=== PATIENT | female | born 1975 | race Caucasian/White ===

== ENCOUNTER 2017-04-03 18:10 | Emergency (ER) | payer OTHER ==
[~2017-04-03] VITALS: Ht 172.7 cm; Wt 104.3 kg
[2017-04-03 19:09] VITALS: BP 115/56
== END 2017-04-03 19:21 | disposition home or self-care (01) ==
LOC: ED 18:10
DX: S50.12XA Contusion of left forearm, initial encounter (principal); W01.198A Fall on same level from slipping, tripping and stumbling with subsequent striking against other object, initial encounter; Y93.89 Activity, other specified; Y92.89 Other specified places as the place of occurrence of the external cause; Y99.9 Unspecified external cause status

== ENCOUNTER 2017-07-02 21:02 | Emergency (ER) | payer OTHER ==
[~2017-07-02] VITALS: Ht 172.7 cm; Wt 120.2 kg
[2017-07-02 21:53] LABS: BASO % 0.4 % (0.0-1.0); EOS # 0.1 10*3/uL (0.0-0.4); EOS % 1.5 % (1.0-4.0); HEMATOCRIT 41.2 % (37.0-47.0); HEMOGLOBIN 13.3 g/dl (12.0-16.0); LYMPH % 20.5 % (27.0-41.0); MEAN CELL VOLUME 87.5 fl (81.0-99.0); MEAN CORPUSCULAR HGB 28.2 pg (27.0-31.0); MEAN CORPUSCULAR HGB CONC 32.3 g/dl (33.0-37.0); MEAN PLATELET VOLUME 11.1 fl (9.6-12.3); MONO # 0.5 10*3/uL (0.1-1.0); MONO % 5.2 % (3.0-9.0); NEUT # 6.9 10*3/uL (2.3-7.9); NEUT % 72.1 % (47.0-73.0); PLATELET COUNT AUTOMATED 184 10*3/uL (130-400); RED BLOOD COUNT 4.71 10*6/uL (4.10-5.10); RED CELL DISTRI WIDTH 13.9 % (0-14.5); WHITE BLOOD COUNT 9.5 10*3/uL (4.8-10.8)
[2017-07-02 22:09] LABS: ALBUMIN 3.1 gm/dl (3.1-4.5); ALKALINE PHOSPHATASE 104 U/L (45-117); B-hCG (QUALITATIVE) NEGATIVE (NEGATIVE); BUN 8 mg/dl (7-24); CHLORIDE 102 mmol/L (98-107); CREATININE 0.86 mg/dL (0.55-1.02); LIPASE 95 U/L (73-393); POTASSIUM 3.8 mmol/L (3.5-5.1); SGOT/AST 11 IU/L (3-35); SGPT/ALT 18 U/L (12-78); SODIUM 136 mmol/L (136-145); TOTAL PROTEIN 7.1 gm/dL (6.4-8.2)
[2017-07-02 22:11] LABS: TROPONIN I < 0.015 ng/ml (<0.045)
[2017-07-02 22:50] LABS: BILIRUBIN NEGATIVE (NEGATIVE); BLOOD NEGATIVE (NEGATIVE); CLARITY SL CLOUDY (CLEAR); COLOR YELLOW (YELLOW); GLUCOSE 2+ (NEGATIVE); KETONE NEGATIVE (NEGATIVE); LEUKO ESTERASE NEGATIVE (NEGATIVE); NITRITE NEGATIVE (NEGATIVE); PH 5.5 (5.0-9.0); SPECIFIC GRAVITY 1.025 (1.005-1.030); UROBILINOGEN 0.2 E.U./dl (0.2-1.0)
[2017-07-02 22:56] LABS: BACTERIA 2+
[2017-07-03 00:07] VITALS: BP 115/60
== END 2017-07-03 00:21 | disposition home or self-care (01) ==
LOC: ED 21:02
PROVIDERS: Emergency Medicine Emergency Medical Services
DX: L84 Corns and callosities (principal); R10.13 Epigastric pain; E11.9 Type 2 diabetes mellitus without complications; F17.200 Nicotine dependence, unspecified, uncomplicated; K21.9 Gastro-esophageal reflux disease without esophagitis

== ENCOUNTER → 2017-07-03 | Outpatient (CLI) | payer OTHER ==
[~2017-07-03] MED LIST: ANAPROX DS550 MG PO; ZOFRAN ODT4 MG SL
== END | disposition home or self-care (01) ==
LOC: US 08:30
DX: R93.8 Abnormal findings on diagnostic imaging of other specified body structures (principal); N83.201 Unspecified ovarian cyst, right side

== ENCOUNTER 2017-07-05 14:16 | Emergency (ER) | payer OTHER ==
[~2017-07-05] VITALS: Ht 172.7 cm; Wt 120.2 kg
[2017-07-05 14:17] VITALS: BP 125/63
[2017-07-05] MEDS ORDERED: ANAPROX DS550 MG PO (16:37)
[2017-07-05] MEDS ORDERED: ZOFRAN ODT4 MG SL (16:37)
== END 2017-07-05 16:51 | disposition home or self-care (01) ==
LOC: ED 14:16
DX: S09.90XA Unspecified injury of head, initial encounter (principal); M79.672 Pain in left foot; R10.13 Epigastric pain; R11.0 Nausea; F17.200 Nicotine dependence, unspecified, uncomplicated; W10.9XXA Fall (on) (from) unspecified stairs and steps, initial encounter; Y93.89 Activity, other specified; Y92.89 Other specified places as the place of occurrence of the external cause; Y99.8 Other external cause status

== ENCOUNTER 2017-07-11 19:04 | Emergency (ER) | payer OTHER ==
[~2017-07-11] VITALS: Ht 172.7 cm; Wt 106.6 kg
[2017-07-11 20:57] LABS: BASO % 0.3 % (0.0-1.0); EOS # 0.1 10*3/uL (0.0-0.4); HEMATOCRIT 41.5 % (37.0-47.0); HEMOGLOBIN 13.5 g/dl (12.0-16.0); LYMPH # 1.5 10*3/uL (1.3-4.4); LYMPH % 17.1 % (27.0-41.0); MEAN CELL VOLUME 88.1 fl (81.0-99.0); MEAN CORPUSCULAR HGB 28.7 pg (27.0-31.0); MEAN CORPUSCULAR HGB CONC 32.5 g/dl (33.0-37.0); MEAN PLATELET VOLUME 11.5 fl (9.6-12.3); MONO # 0.6 10*3/uL (0.1-1.0); MONO % 7.3 % (3.0-9.0); NEUT # 6.4 10*3/uL (2.3-7.9); NEUT % 73.8 % (47.0-73.0); PLATELET COUNT AUTOMATED 158 10*3/uL (130-400); RED BLOOD COUNT 4.71 10*6/uL (4.10-5.10); WHITE BLOOD COUNT 8.7 10*3/uL (4.8-10.8)
[2017-07-11 21:15] LABS: ALBUMIN 3.2 gm/dl (3.1-4.5); ALKALINE PHOSPHATASE 107 U/L (45-117); BUN 7 mg/dl (7-24); CHLORIDE 100 mmol/L (98-107); CREATININE 0.74 mg/dL (0.55-1.02); POTASSIUM 3.8 mmol/L (3.5-5.1); SGOT/AST 11 IU/L (3-35); SGPT/ALT 17 U/L (12-78); SODIUM 137 mmol/L (136-145); TOTAL PROTEIN 7.3 gm/dL (6.4-8.2)
[2017-07-11 22:06] LABS: BILIRUBIN NEGATIVE (NEGATIVE); BLOOD NEGATIVE (NEGATIVE); CLARITY SL CLOUDY (CLEAR); COLOR YELLOW (YELLOW); GLUCOSE 3+ (NEGATIVE); KETONE TRACE (NEGATIVE); LEUKO ESTERASE NEGATIVE (NEGATIVE); NITRITE NEGATIVE (NEGATIVE); SPECIFIC GRAVITY 1.025 (1.005-1.030)
[2017-07-11 22:11] LABS: BACTERIA 1+
[2017-07-11 22:12] LABS: EPITHELIAL CELLS 21-30
[2017-07-11 22:40] VITALS: BP 135/74
[2017-07-11] MEDS ORDERED: PROTONIX40 MG PO (23:24)
== END 2017-07-11 23:38 | disposition home or self-care (01) ==
LOC: ED 19:04
PROVIDERS: Nurse Practitioner
DX: K57.30 Diverticulosis of large intestine without perforation or abscess without bleeding (principal); N20.0 Calculus of kidney; K20.8 Other esophagitis; R10.13 Epigastric pain; E11.9 Type 2 diabetes mellitus without complications; E78.00 Pure hypercholesterolemia, unspecified; D68.9 Coagulation defect, unspecified; F17.200 Nicotine dependence, unspecified, uncomplicated; Z79.899 Other long term (current) drug therapy; Z98.51 Tubal ligation status

== ENCOUNTER → 2017-07-13 | Outpatient (CLI) | payer OTHER ==
[~2017-07-13] MED LIST changes: +CLARITIN10 MG PO; +DELTASONE20 M1 PO; +PEPCID20 MG PO; +PROTONIX40 MG PO
== END | disposition home or self-care (01) ==
LOC: MAMMO 07:20
DX: Z12.31 Encounter for screening mammogram for malignant neoplasm of breast (principal)

== ENCOUNTER 2017-07-16 08:09 | Emergency (ER) | payer OTHER ==
[~2017-07-16] VITALS: Wt 90.7 kg
[~2017-07-16 08:09] MED LIST changes: -CLARITIN10 MG PO; -DELTASONE20 M1 PO; -PEPCID20 MG PO
[2017-07-16 08:12] VITALS: BP 139/63
[2017-07-16] MEDS ORDERED: CLARITIN10 MG PO (08:14)
[2017-07-16] MEDS ORDERED: PEPCID20 MG PO (08:14)
[2017-07-16] MEDS ORDERED: DELTASONE20 M1 PO (08:14)
== END 2017-07-16 08:26 | disposition home or self-care (01) ==
LOC: ED 08:09
DX: L50.9 Urticaria, unspecified (principal); E11.9 Type 2 diabetes mellitus without complications; I10 Essential (primary) hypertension

== ENCOUNTER 2017-07-25 07:23 | Emergency (ER) | payer OTHER ==
[~2017-07-25] VITALS: Ht 172.7 cm; Wt 120.2 kg
[~2017-07-25 07:23] MED LIST changes: +CLARITIN10 MG PO; +DELTASONE20 M1 PO; +PEPCID20 MG PO
[2017-07-25 07:47] LABS: BASO % 0.4 % (0.0-1.0); EOS # 0.1 10*3/uL (0.0-0.4); EOS % 1.3 % (1.0-4.0); HEMATOCRIT 42.8 % (37.0-47.0); HEMOGLOBIN 13.7 g/dl (12.0-16.0); LYMPH # 1.5 10*3/uL (1.3-4.4); LYMPH % 13.9 % (27.0-41.0); MEAN CELL VOLUME 87.7 fl (81.0-99.0); MEAN CORPUSCULAR HGB 28.1 pg (27.0-31.0); MEAN PLATELET VOLUME 10.5 fl (9.6-12.3); MONO # 0.8 10*3/uL (0.1-1.0); MONO % 7.5 % (3.0-9.0); NEUT # 8.1 10*3/uL (2.3-7.9); NEUT % 76.5 % (47.0-73.0); PLATELET COUNT AUTOMATED 198 10*3/uL (130-400); RED BLOOD COUNT 4.88 10*6/uL (4.10-5.10); RED CELL DISTRI WIDTH 14.1 % (0-14.5); WHITE BLOOD COUNT 10.6 10*3/uL (4.8-10.8)
[2017-07-25 08:03] LABS: ALBUMIN 3.1 gm/dl (3.1-4.5); ALKALINE PHOSPHATASE 125 U/L (45-117); BUN 9 mg/dl (7-24); CHLORIDE 102 mmol/L (98-107); CREATININE 0.74 mg/dL (0.55-1.02); LIPASE 90 U/L (73-393); POTASSIUM 3.7 mmol/L (3.5-5.1); SGOT/AST 9 IU/L (3-35); SGPT/ALT 15 U/L (12-78); SODIUM 135 mmol/L (136-145); TOTAL PROTEIN 7.5 gm/dL (6.4-8.2)
[2017-07-25 08:08] LABS: BILIRUBIN NEGATIVE (NEGATIVE); BLOOD NEGATIVE (NEGATIVE); CLARITY CLEAR (CLEAR); COLOR YELLOW (YELLOW); GLUCOSE 3+ (NEGATIVE); KETONE NEGATIVE (NEGATIVE); LEUKO ESTERASE NEGATIVE (NEGATIVE); NITRITE NEGATIVE (NEGATIVE); PH 5.5 (5.0-9.0); SPECIFIC GRAVITY >= 1.030 (1.005-1.030); UROBILINOGEN 0.2 E.U./dl (0.2-1.0)
[2017-07-25 08:20] LABS: BACTERIA 1+; CALCIUM OXALATE CRYSTALS 1+
[2017-07-25 09:40] VITALS: BP 113/61
[2017-07-25] MEDS ORDERED: CARAFATE1 GM/10 ML PO (10:12)
[2017-07-25] MEDS ORDERED: Zofran4 MG SL (10:12)
== END 2017-07-25 11:47 | disposition home or self-care (01) ==
LOC: ED 07:23
PROVIDERS: Student in an Organized Health Care Education/Training Program
DX: R11.2 Nausea with vomiting, unspecified (principal); R10.9 Unspecified abdominal pain; E11.9 Type 2 diabetes mellitus without complications; Z79.899 Other long term (current) drug therapy; Z87.442 Personal history of urinary calculi; Z90.49 Acquired absence of other specified parts of digestive tract

== ENCOUNTER 2017-07-29 22:30 | Inpatient (IN) | payer OTHER ==
[~2017-07-29] VITALS: Ht 172.7 cm
[~2017-07-29 22:30] MED LIST changes: +CARAFATE1 GM/10 ML PO; +Zofran4 MG SL
[2017-07-29 22:33] VITALS: BP 137/45
[2017-07-29 22:55] LABS: BASO # 0.1 10*3/uL (0.0-0.1); BASO % 0.5 % (0.0-1.0); EOS # 0.1 10*3/uL (0.0-0.4); EOS % 0.7 % (1.0-4.0); HEMATOCRIT 40.7 % (37.0-47.0); HEMOGLOBIN 12.8 g/dl (12.0-16.0); LYMPH # 1.4 10*3/uL (1.3-4.4); LYMPH % 12.6 % (27.0-41.0); MEAN CELL VOLUME 89.1 fl (81.0-99.0); MEAN CORPUSCULAR HGB CONC 31.4 g/dl (33.0-37.0); MEAN PLATELET VOLUME 11.1 fl (9.6-12.3); MONO # 0.7 10*3/uL (0.1-1.0); MONO % 6.4 % (3.0-9.0); NEUT # 8.7 10*3/uL (2.3-7.9); NEUT % 79.4 % (47.0-73.0); PLATELET COUNT AUTOMATED 242 10*3/uL (130-400); RED BLOOD COUNT 4.57 10*6/uL (4.10-5.10); RED CELL DISTRI WIDTH 14.4 % (0-14.5)
[2017-07-29] MEDS ORDERED: ELIQUIS5 M1 PO (22:57)
[2017-07-29] MEDS ORDERED: NEURONTIN300 MG PO (22:58)
[2017-07-29] MEDS ORDERED: METFORMIN1000 MG PO (22:58)
[2017-07-29] MEDS ORDERED: OMEPRAZOLE40 MG PO (22:58)
[2017-07-29] MEDS ORDERED: ASPIRIN CHEWABL81 MG PO (22:59)
[2017-07-29] MEDS ORDERED: AMARYL4 MG PO (22:59)
[2017-07-29] MEDS ORDERED: LISINOPRIL2.5 MG PO (23:00)
[2017-07-29] MEDS ORDERED: ZOCOR5 MG PO (23:00)
[2017-07-29] MEDS ORDERED: NOVOLOG 70/30 M10 ML SC (23:01)
[2017-07-29 23:06] LABS: ACT PARTIAL THROMBO TIME 21.3 SECONDS (20.8-31.5)
[2017-07-29 23:08] LABS: LIPASE 107 U/L (73-393)
[2017-07-29 23:16] LABS: ALBUMIN 3.1 gm/dl (3.1-4.5); ALKALINE PHOSPHATASE 111 U/L (45-117); BUN 8 mg/dl (7-24); CHLORIDE 103 mmol/L (98-107); CREATININE 0.76 mg/dL (0.55-1.02); POTASSIUM 4.4 mmol/L (3.5-5.1); SGOT/AST 12 IU/L (3-35); SGPT/ALT 17 U/L (12-78); SODIUM 137 mmol/L (136-145); TOTAL PROTEIN 6.9 gm/dL (6.4-8.2)
[2017-07-29 23:17] LABS: TROPONIN I < 0.015 ng/ml (<0.045)
[2017-07-29 23:22] LABS: BILIRUBIN NEGATIVE (NEGATIVE); BLOOD NEGATIVE (NEGATIVE); CLARITY SL CLOUDY (CLEAR); COLOR YELLOW (YELLOW); GLUCOSE 2+ (NEGATIVE); KETONE 1+ (NEGATIVE); LEUKO ESTERASE NEGATIVE (NEGATIVE); NITRITE NEGATIVE (NEGATIVE); SPECIFIC GRAVITY >= 1.030 (1.005-1.030); UROBILINOGEN 0.2 E.U./dl (0.2-1.0)
[2017-07-29 23:29] LABS: BACTERIA 2+; CALCIUM OXALATE CRYSTALS 1+; EPITHELIAL CELLS 20-25
[2017-07-29 23:30] VITALS: BP 116/69
[2017-07-30] LABS: URINE AMPHETAMINES < 1000 (1000ng/ml); URINE BARBITURATES > 200 (200ng/ml); URINE BENZODIAZEPINES < 200 (200ng/ml); URINE CANNABINOIDS (THC) < 50 (50ng/ml); URINE COCAINE < 300 (300ng/ml); URINE METHADONE < 300 (300ng/ml); URINE OPIATES < 300 (300ng/ml); URINE PHENCYCLIDINE < 25 (25ng/ml)
[2017-07-30 00:41] VITALS: BP 119/96
[2017-07-30 00:50] VITALS: BP 130/61
[2017-07-30 05:05] LABS: ALBUMIN 2.7 gm/dl (3.1-4.5); ALKALINE PHOSPHATASE 111 U/L (45-117); BUN 6 mg/dl (7-24); CHLORIDE 104 mmol/L (98-107); CHOLESTEROL 219 mg/dL (<200); CREATININE 0.65 mg/dL (0.55-1.02); FREE T4 0.97 ng/dl (0.76-1.46); HDL CHOLESTEROL 17 mg/dl (40-60); LDL CHOLESTEROL 158 mg/dL (9-159); PHOSPHOROUS 2.4 mg/dL (2.5-4.9); POTASSIUM 3.7 mmol/L (3.5-5.1); SGOT/AST 13 IU/L (3-35); SGPT/ALT 16 U/L (12-78); SODIUM 140 mmol/L (136-145); TOTAL PROTEIN 6.8 gm/dL (6.4-8.2); TRIGLYCERIDES 221 mg/dl (<150); VLDL CHOLESTEROL 44 mg/dL (6-40)
[2017-07-30 05:10] LABS: ACT PARTIAL THROMBO TIME 21.9 SECONDS (20.8-31.5)
[2017-07-30 06:13] LABS: BASO % 0.3 % (0.0-1.0); EOS # 0.1 10*3/uL (0.0-0.4); EOS % 1.1 % (1.0-4.0); HEMATOCRIT 40.1 % (37.0-47.0); HEMOGLOBIN 12.6 g/dl (12.0-16.0); LYMPH # 1.8 10*3/uL (1.3-4.4); LYMPH % 20.2 % (27.0-41.0); MEAN CELL VOLUME 89.1 fl (81.0-99.0); MEAN CORPUSCULAR HGB CONC 31.4 g/dl (33.0-37.0); MEAN PLATELET VOLUME 11.5 fl (9.6-12.3); MONO # 0.7 10*3/uL (0.1-1.0); MONO % 7.3 % (3.0-9.0); NEUT # 6.3 10*3/uL (2.3-7.9); NEUT % 70.8 % (47.0-73.0); PLATELET COUNT AUTOMATED 242 10*3/uL (130-400); RED CELL DISTRI WIDTH 14.4 % (0-14.5)
[2017-07-30 06:55] LABS: VITAMIN D, 25-HYDROXY 20.3 ng/mL (30-100)
[2017-07-30 08:00] VITALS: BP 121/57
[2017-07-30 12:00] VITALS: BP 140/71
[2017-07-30 16:00] VITALS: BP 130/73
[2017-07-30 20:00] VITALS: BP 108/48
[2017-07-31] VITALS: BP 129/68
[2017-07-31 06:35] LABS: BUN 5 mg/dl (7-24); CHLORIDE 105 mmol/L (98-107); CREATININE 0.72 mg/dL (0.55-1.02); PHOSPHOROUS 2.7 mg/dL (2.5-4.9); SODIUM 142 mmol/L (136-145)
[2017-07-31 06:40] LABS: BASO % 0.3 % (0.0-1.0); EOS # 0.2 10*3/uL (0.0-0.4); EOS % 2.2 % (1.0-4.0); HEMATOCRIT 39.3 % (37.0-47.0); HEMOGLOBIN 12.2 g/dl (12.0-16.0); LYMPH # 1.3 10*3/uL (1.3-4.4); LYMPH % 15.5 % (27.0-41.0); MEAN CELL VOLUME 90.6 fl (81.0-99.0); MEAN CORPUSCULAR HGB 28.1 pg (27.0-31.0); MEAN PLATELET VOLUME 11.3 fl (9.6-12.3); MONO # 0.8 10*3/uL (0.1-1.0); MONO % 9.7 % (3.0-9.0); NEUT # 6.2 10*3/uL (2.3-7.9); NEUT % 72.1 % (47.0-73.0); PLATELET COUNT AUTOMATED 251 10*3/uL (130-400); RED BLOOD COUNT 4.34 10*6/uL (4.10-5.10); RED CELL DISTRI WIDTH 14.2 % (0-14.5); WHITE BLOOD COUNT 8.6 10*3/uL (4.8-10.8)
[2017-07-31 08:00] VITALS: BP 105/39
[2017-07-31 16:00] VITALS: BP 114/65
[2017-07-31 20:00] VITALS: BP 132/72
[2017-08-01] VITALS (9 sets, daily range): BP systolic 90–118; BP diastolic 48–86
[2017-08-01 06:33] LABS: BASO % 0.3 % (0.0-1.0); EOS # 0.2 10*3/uL (0.0-0.4); EOS % 2.2 % (1.0-4.0); HEMATOCRIT 39.1 % (37.0-47.0); HEMOGLOBIN 11.9 g/dl (12.0-16.0); LYMPH # 1.9 10*3/uL (1.3-4.4); LYMPH % 19.7 % (27.0-41.0); MEAN CELL VOLUME 91.6 fl (81.0-99.0); MEAN CORPUSCULAR HGB 27.9 pg (27.0-31.0); MEAN CORPUSCULAR HGB CONC 30.4 g/dl (33.0-37.0); MONO # 0.5 10*3/uL (0.1-1.0); MONO % 5.3 % (3.0-9.0); NEUT % 72.1 % (47.0-73.0); PLATELET COUNT AUTOMATED 254 10*3/uL (130-400); RED BLOOD COUNT 4.27 10*6/uL (4.10-5.10); RED CELL DISTRI WIDTH 14.1 % (0-14.5); WHITE BLOOD COUNT 9.7 10*3/uL (4.8-10.8)
[2017-08-01 07:07] LABS: BUN 6 mg/dl (7-24); CHLORIDE 102 mmol/L (98-107); CREATININE 0.68 mg/dL (0.55-1.02); SODIUM 139 mmol/L (136-145)
[2017-08-02 00:22] VITALS: BP 139/70
[2017-08-03 15:08] LABS: ANTICARDIOLIPIN AB, IGG, QN <9 GPL U/mL (0-14); ANTICARDIOLIPIN AB, IGM, QN 14 MPL U/mL (0-12); CARDIOLIPIN AB IGA 161836 <9 APL U/mL (0-11)
[2017-08-04 01:04] LABS: PTT-LA 46.1 sec (0.0-51.9)
[2017-08-04 02:05] LABS: ANTI-THROMBIN III ACTIVITY 108 % (75-135); PROTEIN S, FREE 93 % (57-157); PROTEIN S, TOTAL 82 % (60-150)
[2017-08-04 07:05] LABS: LUPUS REFLEX INTERPRETATION Comment: (.)
== END 2017-08-02 08:20 | disposition other institution (70) | DRG 303 ==
LOC: ED 22:30 → 5E 07-30 00:13 → EDHOLD 07-30 00:13 → 5E 07-30 00:22
PROVIDERS: Emergency Medicine; Family Medicine; Internal Medicine
PROC: 4A02XM4 Measurement of Cardiac Total Activity, External Approach (ICD-10-PCS; 2017-07-31)
PROC: 3E073KZ Introduction of Other Diagnostic Substance into Coronary Artery, Percutaneous Approach (ICD-10-PCS; 2017-07-31)
PROC: B245ZZ4 Ultrasonography of Left Heart, Transesophageal (ICD-10-PCS; principal; 2017-08-01)
DX: I25.10 Atherosclerotic heart disease of native coronary artery without angina pectoris (principal); I74.9 Embolism and thrombosis of unspecified artery; I82.90 Acute embolism and thrombosis of unspecified vein; D73.5 Infarction of spleen; E83.39 Other disorders of phosphorus metabolism; D57.1 Sickle-cell disease without crisis; E11.65 Type 2 diabetes mellitus with hyperglycemia; E83.41 Hypermagnesemia; K29.70 Gastritis, unspecified, without bleeding; N20.0 Calculus of kidney; F17.210 Nicotine dependence, cigarettes, uncomplicated; K57.90 Diverticulosis of intestine, part unspecified, without perforation or abscess without bleeding; D72.825 Bandemia; E78.5 Hyperlipidemia, unspecified; E53.8 Deficiency of other specified B group vitamins; Z79.4 Long term (current) use of insulin; Z71.6 Tobacco abuse counseling; Z90.49 Acquired absence of other specified parts of digestive tract; Z98.51 Tubal ligation status; Z86.73 Personal history of transient ischemic attack (TIA), and cerebral infarction without residual deficits; Z79.82 Long term (current) use of aspirin; Z79.84 Long term (current) use of oral hypoglycemic drugs; Z79.899 Other long term (current) drug therapy

== ENCOUNTER → 2017-08-16 | Outpatient (CLI) | payer OTHER ==
[~2017-08-16] MED LIST changes: +AMARYL4 MG PO; +ASPIRIN CHEWABL81 MG PO; +ELIQUIS5 M1 PO; +LISINOPRIL2.5 MG PO; +METFORMIN1000 MG PO; +NEURONTIN300 MG PO; +NOVOLOG 70/30 M10 ML SC; +OMEPRAZOLE40 MG PO; +ZOCOR5 MG PO
[2017-08-16 12:13] LABS: BASO % 0.3 % (0.0-1.0); EOS # 0.3 10*3/uL (0.0-0.4); EOS % 2.2 % (1.0-4.0); HEMATOCRIT 41.5 % (37.0-47.0); HEMOGLOBIN 13.1 g/dl (12.0-16.0); LYMPH # 1.6 10*3/uL (1.3-4.4); LYMPH % 13.1 % (27.0-41.0); MEAN CELL VOLUME 89.1 fl (81.0-99.0); MEAN CORPUSCULAR HGB 28.1 pg (27.0-31.0); MEAN CORPUSCULAR HGB CONC 31.6 g/dl (33.0-37.0); MEAN PLATELET VOLUME 11.4 fl (9.6-12.3); MONO # 0.7 10*3/uL (0.1-1.0); MONO % 5.6 % (3.0-9.0); NEUT # 9.4 10*3/uL (2.3-7.9); NEUT % 78.4 % (47.0-73.0); PLATELET COUNT AUTOMATED 363 10*3/uL (130-400); RED BLOOD COUNT 4.66 10*6/uL (4.10-5.10); RED CELL DISTRI WIDTH 14.5 % (0-14.5); WHITE BLOOD COUNT 11.9 10*3/uL (4.8-10.8)
[2017-08-16 12:46] LABS: ALBUMIN 3.1 gm/dl (3.1-4.5); ALKALINE PHOSPHATASE 146 U/L (45-117); BUN 7 mg/dl (7-24); CHLORIDE 102 mmol/L (98-107); CREATININE 0.77 mg/dL (0.55-1.02); POTASSIUM 3.7 mmol/L (3.5-5.1); SGOT/AST 9 IU/L (3-35); SGPT/ALT 13 U/L (12-78); SODIUM 138 mmol/L (136-145); TOTAL PROTEIN 7.2 gm/dL (6.4-8.2)
[2017-08-18 22:06] LABS: PROTEIN C, ACTIVITY 111 % (.); PROTEIN S ACTIVITY 134 % (.)
== END | disposition home or self-care (01) ==
LOC: LAB 11:33
PROVIDERS: Registered Nurse Flight
DX: I10 Essential (primary) hypertension (principal); E11.65 Type 2 diabetes mellitus with hyperglycemia; Z86.718 Personal history of other venous thrombosis and embolism

== ENCOUNTER → 2017-09-22 | Outpatient (CLI) | payer OTHER | END | disposition home or self-care (01) | LOC: RAD 12:06 | DX: M25.551 Pain in right hip (principal); R20.0 Anesthesia of skin; R20.2 Paresthesia of skin ==

== ENCOUNTER → 2018-01-10 | Outpatient (CLI) | payer OTHER ==
[2018-01-10 11:12] LABS: HEMATOCRIT 40.6 % (37.0-47.0); HEMOGLOBIN 12.8 g/dl (12.0-16.0); MEAN CELL VOLUME 88.6 fl (81.0-99.0); MEAN CORPUSCULAR HGB 27.9 pg (27.0-31.0); MEAN CORPUSCULAR HGB CONC 31.5 g/dl (33.0-37.0); MEAN PLATELET VOLUME 10.9 fl (9.6-12.3); RED BLOOD COUNT 4.58 10*6/uL (4.10-5.10); RED CELL DISTRI WIDTH 15.5 % (0-14.5); WHITE BLOOD COUNT 9.9 10*3/uL (4.8-10.8)
[2018-01-10 11:40] LABS: ALBUMIN 2.9 gm/dl (3.1-4.5); ALKALINE PHOSPHATASE 112 U/L (45-117); BUN 10 mg/dl (7-24); CHLORIDE 102 mmol/L (98-107); CHOLESTEROL 195 mg/dL (<200); CREATININE 0.95 mg/dL (0.55-1.02); HDL CHOLESTEROL 18 mg/dl (40-60); LDL CHOLESTEROL 127 mg/dL (9-159); POTASSIUM 3.9 mmol/L (3.5-5.1); SGOT/AST 6 IU/L (3-35); SGPT/ALT 12 U/L (12-78); SODIUM 135 mmol/L (136-145); TRIGLYCERIDES 251 mg/dl (<150); VLDL CHOLESTEROL 50 mg/dL (6-40)
== END | disposition home or self-care (01) ==
LOC: LAB 10:46
PROVIDERS: Registered Nurse Flight
DX: M25.561 Pain in right knee (principal); I10 Essential (primary) hypertension; E11.65 Type 2 diabetes mellitus with hyperglycemia; E78.00 Pure hypercholesterolemia, unspecified

== ENCOUNTER 2018-05-19 15:31 | Emergency (ER) | payer OTHER ==
[~2018-05-19] VITALS: Ht 172.7 cm; Wt 106.6 kg
[2018-05-19 15:34] VITALS: BP 118/67
[2018-05-19] MEDS ORDERED: MEDROL DOSEPAK4 MG PO (16:48)
== END 2018-05-19 17:05 | disposition home or self-care (01) ==
LOC: ED 15:31
DX: M79.671 Pain in right foot (principal); E11.9 Type 2 diabetes mellitus without complications; F17.200 Nicotine dependence, unspecified, uncomplicated; Z79.899 Other long term (current) drug therapy; Z79.84 Long term (current) use of oral hypoglycemic drugs; Z79.82 Long term (current) use of aspirin; Z79.4 Long term (current) use of insulin

== ENCOUNTER 2018-06-20 20:02 | Emergency (ER) | payer OTHER ==
[~2018-06-20] VITALS: Wt 106.6 kg
[~2018-06-20 20:02] MED LIST changes: +MEDROL DOSEPAK4 MG PO
[2018-06-20 20:05] VITALS: BP 131/98
[2018-06-20 20:32] LABS: BASO % 0.2 % (0.0-1.0); EOS # 0.1 10*3/uL (0.0-0.4); HEMATOCRIT 41.4 % (37.0-47.0); HEMOGLOBIN 13.4 g/dl (12.0-16.0); LYMPH # 2.3 10*3/uL (1.3-4.4); LYMPH % 20.1 % (27.0-41.0); MEAN CELL VOLUME 88.3 fl (81.0-99.0); MEAN CORPUSCULAR HGB 28.6 pg (27.0-31.0); MEAN CORPUSCULAR HGB CONC 32.4 g/dl (33.0-37.0); MEAN PLATELET VOLUME 10.5 fl (9.6-12.3); MONO # 0.8 10*3/uL (0.1-1.0); MONO % 6.6 % (3.0-9.0); NEUT # 8.3 10*3/uL (2.3-7.9); NEUT % 71.8 % (47.0-73.0); PLATELET COUNT AUTOMATED 181 10*3/uL (130-400); RED BLOOD COUNT 4.69 10*6/uL (4.10-5.10); RED CELL DISTRI WIDTH 15.2 % (0-14.5); WHITE BLOOD COUNT 11.6 10*3/uL (4.8-10.8)
[2018-06-20 20:47] LABS: ALKALINE PHOSPHATASE 105 U/L (45-117); BUN 11 mg/dl (7-24); CHLORIDE 106 mmol/L (98-107); CREATININE 0.73 mg/dL (0.55-1.02); SGOT/AST 6 IU/L (3-35); SGPT/ALT 17 U/L (12-78); SODIUM 137 mmol/L (136-145); TOTAL PROTEIN 7.6 gm/dL (6.4-8.2); URIC ACID 3.6 mg/dL (2.6-6.0)
== END 2018-06-20 22:53 | disposition home or self-care (01) ==
LOC: ED 20:02
PROVIDERS: Nurse Practitioner Family
DX: M79.605 Pain in left leg (principal); R60.0 Localized edema; E11.9 Type 2 diabetes mellitus without complications; E78.5 Hyperlipidemia, unspecified; J45.909 Unspecified asthma, uncomplicated; F17.200 Nicotine dependence, unspecified, uncomplicated; Z86.73 Personal history of transient ischemic attack (TIA), and cerebral infarction without residual deficits; Z79.899 Other long term (current) drug therapy; Z79.82 Long term (current) use of aspirin; Z79.4 Long term (current) use of insulin; Z79.84 Long term (current) use of oral hypoglycemic drugs; Z90.49 Acquired absence of other specified parts of digestive tract

== ENCOUNTER 2018-09-29 19:21 | Emergency (ER) | payer OTHER ==
[~2018-09-29] VITALS: Wt 95.7 kg
[2018-09-29 19:23] VITALS: BP 137/75
[2018-09-29 20:20] LABS: BASO % 0.2 % (0.0-1.0); EOS # 0.1 10*3/uL (0.0-0.4); EOS % 1.1 % (1.0-4.0); HEMATOCRIT 36.3 % (37.0-47.0); HEMOGLOBIN 11.2 g/dl (12.0-16.0); LYMPH # 1.4 10*3/uL (1.3-4.4); LYMPH % 15.9 % (27.0-41.0); MEAN CELL VOLUME 89.9 fl (81.0-99.0); MEAN CORPUSCULAR HGB 27.7 pg (27.0-31.0); MEAN CORPUSCULAR HGB CONC 30.9 g/dl (33.0-37.0); MEAN PLATELET VOLUME 10.3 fl (9.6-12.3); MONO # 0.6 10*3/uL (0.1-1.0); MONO % 6.8 % (3.0-9.0); NEUT # 6.7 10*3/uL (2.3-7.9); NEUT % 75.7 % (47.0-73.0); PLATELET COUNT AUTOMATED 309 10*3/uL (130-400); RED BLOOD COUNT 4.04 10*6/uL (4.10-5.10); RED CELL DISTRI WIDTH 17.4 % (0-14.5); WHITE BLOOD COUNT 8.9 10*3/uL (4.8-10.8)
[2018-09-29 20:38] LABS: ALBUMIN 2.9 gm/dl (3.1-4.5); ALKALINE PHOSPHATASE 131 U/L (45-117); BUN 6 mg/dl (7-24); CHLORIDE 103 mmol/L (98-107); CREATININE 0.79 mg/dL (0.55-1.02); POTASSIUM 3.4 mmol/L (3.5-5.1); SGOT/AST 8 IU/L (3-35); SGPT/ALT 14 U/L (12-78); SODIUM 140 mmol/L (136-145); TOTAL PROTEIN 7.7 gm/dL (6.4-8.2)
== END 2018-09-29 23:40 | disposition home or self-care (01) ==
LOC: ED 19:21
PROVIDERS: Student in an Organized Health Care Education/Training Program
DX: M79.671 Pain in right foot (principal); F17.200 Nicotine dependence, unspecified, uncomplicated; Z79.899 Other long term (current) drug therapy; Z79.82 Long term (current) use of aspirin; Z86.73 Personal history of transient ischemic attack (TIA), and cerebral infarction without residual deficits; Z98.890 Other specified postprocedural states

== ENCOUNTER → 2018-12-13 | Outpatient (CLI) | payer OTHER ==
[2018-12-13 14:29] LABS: INTERNATIONAL NORM RATIO 1.5 (2.0-3.5)
== END | disposition home or self-care (01) ==
LOC: LAB 13:32
PROVIDERS: Registered Nurse Flight
DX: I70.209 Unspecified atherosclerosis of native arteries of extremities, unspecified extremity (principal); I82.503 Chronic embolism and thrombosis of unspecified deep veins of lower extremity, bilateral

== ENCOUNTER → 2018-12-24 | Outpatient (CLI) | payer OTHER ==
[2018-12-24 14:15] LABS: BASO % 0.2 % (0.0-1.0); EOS # 0.1 10*3/uL (0.0-0.4); EOS % 1.5 % (1.0-4.0); HEMATOCRIT 38.5 % (37.0-47.0); LYMPH # 1.3 10*3/uL (1.3-4.4); LYMPH % 16.3 % (27.0-41.0); MEAN CELL VOLUME 88.3 fl (81.0-99.0); MEAN CORPUSCULAR HGB 27.5 pg (27.0-31.0); MEAN CORPUSCULAR HGB CONC 31.2 g/dl (33.0-37.0); MEAN PLATELET VOLUME 10.4 fl (9.6-12.3); MONO # 0.4 10*3/uL (0.1-1.0); MONO % 5.3 % (3.0-9.0); NEUT # 6.3 10*3/uL (2.3-7.9); NEUT % 76.5 % (47.0-73.0); PLATELET COUNT AUTOMATED 383 10*3/uL (130-400); RED BLOOD COUNT 4.36 10*6/uL (4.10-5.10); RED CELL DISTRI WIDTH 16.5 % (0-14.5); WHITE BLOOD COUNT 8.2 10*3/uL (4.8-10.8)
[2018-12-24 14:47] LABS: ALBUMIN 3.1 gm/dl (3.1-4.5); ALKALINE PHOSPHATASE 148 U/L (45-117); BUN 9 mg/dl (7-24); CHLORIDE 104 mmol/L (98-107); CREATININE 0.84 mg/dL (0.55-1.02); POTASSIUM 3.7 mmol/L (3.5-5.1); SGOT/AST 5 IU/L (3-35); SGPT/ALT 12 U/L (12-78); SODIUM 139 mmol/L (136-145); TOTAL PROTEIN 7.7 gm/dL (6.4-8.2)
[2018-12-25 16:08] LABS: ANTI-THROMBIN III ACTIVITY 130 % (75-135); ANTICARDIOLIPIN AB, IGG, QN <9 GPL U/mL (0-14); ANTICARDIOLIPIN AB, IGM, QN 16 MPL U/mL (0-12); CARDIOLIPIN AB IGA 161836 <9 APL U/mL (0-11); PROTEIN S, FREE 38 % (57-157); PROTEIN S, TOTAL 72 % (60-150)
[2018-12-26 12:06] LABS: PHOSPHOLIPIDS 001727 212 mg/dL (150-250)
[2018-12-26 15:06] LABS: BETA-2 GLYCOPROTEIN I AB,IGA <9 (0-25); BETA-2 GLYCOPROTEIN I AB,IGG <9 (0-20); BETA-2 GLYCOPROTEIN I AB,IGM 34 (0-32)
== END | disposition home or self-care (01) ==
LOC: LAB 13:26
PROVIDERS: Internal Medicine Hematology & Oncology
DX: D68.59 Other primary thrombophilia (principal)

== ENCOUNTER 2019-04-21 07:06 | Inpatient (IN) | payer OTHER ==
[~2019-04-21] VITALS: Ht 172.7 cm; Wt 96.4 kg
[2019-04-21 07:11] VITALS: BP 123/91
[2019-04-21 07:43] LABS: BASO % 0.2 % (0.0-1.0); EOS # 0.1 10*3/uL (0.0-0.4); HEMATOCRIT 37.3 % (37.0-47.0); HEMOGLOBIN 11.5 g/dl (12.0-16.0); LYMPH # 2.1 10*3/uL (1.3-4.4); MEAN CELL VOLUME 90.1 fl (81.0-99.0); MEAN CORPUSCULAR HGB 27.8 pg (27.0-31.0); MEAN CORPUSCULAR HGB CONC 30.8 g/dl (33.0-37.0); MEAN PLATELET VOLUME 9.9 fl (9.6-12.3); MONO # 0.8 10*3/uL (0.1-1.0); MONO % 6.2 % (3.0-9.0); NEUT # 9.5 10*3/uL (2.3-7.9); NEUT % 75.3 % (47.0-73.0); PLATELET COUNT AUTOMATED 450 10*3/uL (130-400); RED BLOOD COUNT 4.14 10*6/uL (4.10-5.10); RED CELL DISTRI WIDTH 15.7 % (0-14.5); WHITE BLOOD COUNT 12.6 10*3/uL (4.8-10.8)
[2019-04-21 07:58] LABS: ALBUMIN 2.8 gm/dl (3.1-4.5); ALKALINE PHOSPHATASE 140 U/L (45-117); BUN 8 mg/dl (7-24); CHLORIDE 106 mmol/L (98-107); CREATININE 0.85 mg/dL (0.55-1.02); POTASSIUM 3.6 mmol/L (3.5-5.1); SGOT/AST 4 IU/L (3-35); SGPT/ALT 12 U/L (12-78); SODIUM 136 mmol/L (136-145); TOTAL PROTEIN 7.7 gm/dL (6.4-8.2)
--- NOTE | 2019-04-21 08:15 | NUR ---
STATES PAIN IS A 10/10 STILL VICODIN 10MG NO RELIEF DR MARTINS
[2019-04-21 09:04] VITALS: BP 139/82
--- NOTE | 2019-04-21 09:30 | NUR ---
PT REPORTS PAIN 5/ DILAUDID GAVE SOME RELIEF
[2019-04-21 10:00] VITALS: BP 126/42; BP 126/72
[2019-04-21] MEDS ORDERED: LIPITOR40 MG PO (10:18)
[2019-04-21] MEDS ORDERED: OXAYDO7.5 MG PO (10:22)
[2019-04-21] MEDS ORDERED: VICO75300 PO (10:24)
[2019-04-21] MEDS ORDERED: ATIVAN0.5 MG PO (10:39)
[2019-04-21] MEDS ORDERED: Coumadin7.5 MG PO (10:39)
--- NOTE | 2019-04-21 10:51 | NUR ---
Spoke with patients home pharmacy to verify coumadin dosing and metoprolol. See med rec.
--- NOTE | 2019-04-21 10:52 | NUR ---
Face to face encounter with Dr. Javier that patients home meds were updated.
--- NOTE | 2019-04-21 11:56 | NUR ---
Morphine and [place] given for c/o pain in left foot rated 8/10. Will monitor.
--- NOTE | 2019-04-21 12:00 | NUR ---
Spoke with Dr. Rogers regarding consult for osteomylitis and left a message with answering service regarding consult for same.
--- NOTE | 2019-04-21 13:01 | NUR ---
Per request of I contacted [facility] to see when nurse will be coming to evaluate patient. Message was left, awaiting response.
[2019-04-21 16:00] VITALS: BP 108/65
--- NOTE | 2019-04-21 17:55 | NUR ---
Spoke with regarding patients c/o pain meds not working and ordering home medications. Physician to follow up.
[2019-04-21] MEDS ORDERED: NEURONTIN400 MG PO (18:36)
--- NOTE | 2019-04-21 18:40 | NUR ---
Notified Dr. Javier that patient refused neurotin because it was the wrong dose. See med rec and new orders.
[2019-04-21 20:00] VITALS: BP 152/93
--- NOTE | 2019-04-21 20:07 | NUR ---
PT REFUSING SCHEDULED NORCO SHE STATES "IT DOESN'T WORK." IV DILAUDID GIVEN PER PRN ORDER FOR C/O 10/10 PAIN IN L GREAT TOE AMPUTATION WOUND, WHICH PT DESCRIBES STABBING & CONSTANT. PT THREATENING TO LEAVE AMA. RN STRONGLY ENCOURAGED PT NOT TO DO SO AND EDUCATED PT ON RISKS OF LEAVING AMA. PT UNRECEPTIVE OF EDUCATION AND CONTINUES TO CRY AND CUSS AT RN BECAUSE SHE "CANNOT TASTE THE DILAUDID." RN REASSURED PATIENT THAT FULL IV DILAUDID DOSE ORDERED WAS GIVEN SLOWLY WITH IV VANC CURRENTLY INFUSING. PT STILL THREATENING TO LEAVE AND SAYS THIS IS "BULL SH*T." RN LEFT ROOM TO GIVE PT TIME TO COOL DOWN. WILL MONITOR EFFECTIVENESS OF MEDICATIONS.
--- NOTE | 2019-04-21 21:10 | NUR ---
SCHEDULED PO NORCO RE-TIMED FOR 0. PT STATES EARLIER DILAUDID INEFFECTIVE. PO NORCO GIVEN, THOUGH PT HESITATED TO TAKE SHE STILL STATES IT DOES NOT WORK. REQUESTING RN CALL FOR "SOMETHING MORE."
--- NOTE | 2019-04-21 21:27 | NUR ---
MADE AWARE OF PT'S REQUEST FOR ADDITIONAL PAIN MEDICATION. DISCUSSED SCHEDULED PO NORCO AND IV DILAUDID GIVEN. NEW ORDER RECEIVED FOR 0.5MG IV DILAUDID X1 DOSE NOW.
--- NOTE | 2019-04-21 21:59 | NUR ---
0.5 MG IV DILAUDID ADMINISTERED PER ONE TIME ORDER. PT RATING PAIN 9/10 AND STILL MOANING AND ROCKING BACK AND FORTH IN PAIN. PT ASKED RN TO PUSH DILAUDID SLOWLY THIS TIME. RN REASSURED PT THAT EARLIER DOSE WAS PUSHED SLOWLY THROUGH IV VANC INFUSION IT REQUIRES SLOW ADMINISTRATION OVER 2-3 MINUTES. DILAUDID ADMINISTERED SLOWLY, BUT PT STILL UPSET THAT SHE "CAN'T TASTE IT." PO RESTORIL ALSO ADMINISTERED PER PRN ORDER FOR PT C/O INSOMNIA. STATES SHE HAS NOT SLEPT IN 5 DAYS. PT UNWRAPPED FOOT DRESSING ON HER OWN. STATES L GREAT TOE AMPUTATED IN JULY 2018 AND L SECOND TOE AMPUTATED IN JANUARY 2018. RN ATTEMPTED TO APPLY NEW DRESSING TO SITE, BUT PATIENT REFUSING AND REQUESTING TO DO SO HERSELF. PT ALSO REFUSING TO USE NONADHERENT PAD. PT STATES SHE WILL USE ONLY GAUZE AND COBAN BROUGHT FROM HOME. WILL MONITOR. CALL LIGHT LEFT IN REACH.
[2019-04-21] MEDS ORDERED: GABAPENTIN800 MG PO (22:30)
--- NOTE | 2019-04-21 22:33 | NUR ---
INFORMED OF MED REC ERRORS PER PT. RN VIEWED PRESCRIPTION BOTTLE. NEW ORDER RECEIVED TO FIX GABAPENTIN ORDER AND TO ORDER 400 MG GABAPENTIN X1 DOSE NOW.
--- NOTE | 2019-04-21 22:53 | NUR ---
PT LEFT DRESSING TO R FOOT OFF. STATES SHE IS TOO HOT. ROOM TEMPERATURE TURNED DOWN PER REQUEST. RN ENCOURAGED PT TO WEAR DRESSING TO REDUCE EXPOSURE TO BACTERIA, ETC, WHILE IN HOSPITAL. PT STILL REFUSING. PO GABAPENTIN GIVEN PER ONE TIME ORDER. EARLIER MEDICATIONS "HELPED SOME" PER PT. STILL RATING PAIN 9/10. PT BEGINS TO MOAN/CRY WHEN RN ENTERS ROOM. RN OFFERED COMFORT MEASURES, INCLUDING ELEVATING LEG, ICE, ETC. PT REFUSING STATES ONLY PAIN MEDICATION WILL HELP.
[2019-04-22] VITALS (9 sets, daily range): BP systolic 100–128; BP diastolic 45–70
--- NOTE | 2019-04-22 01:34 | NUR ---
PT MEDICATED WITH SCHEDULED PO NORCO PER ORDER FOR C/O PAIN IN L FOOT RATED 10/10. GIVEN WITH SMALL SIPS OF WATER. PATIENT UPSET THAT SHE CANNOT EAT/DRINK AFTER MIDNIGHT. RN EXPLAINED REASONING BEHIND NPO STATUS. PT STATES "I'VE HAD 4 BOTTLES OF POP BEFORE A SURGERY BEFORE AND NOTHING HAPPENED." RN EDUCATED AND ENCOURAGED PATIENT TO REMAIN NPO. PATIENT REPLIES "YEAH OKAY."
--- NOTE | 2019-04-22 01:46 | NUR ---
PT REFUSING TO WEAR TEDs. AGREES TO WEAR SCD TO R LEG ONLY. REFUSING TO HAVE L LEG SCD APPLIED.
--- NOTE | 2019-04-22 02:06 | NUR ---
DRESSING TO L FOOT REMAINS OFF DESPITE EDUCATION. SCD TO RLE ONLY PT REFUSING APPLICATION TO LLE.
--- NOTE | 2019-04-22 02:30 | NUR ---
IV DILAUDID ADMINSITERED PER PRN ORDER FOR C/O PAIN RATED 10/10 IN L FOOT. WOUND VAC & SUPPLIES GATHERED BY SHIFT DIRECTOR FOR POSSIBLE USE TOMORROW PER 'S CPOE ORDER. WOUND VAC PLACED IN ROOM. PATIENT STATES SHE IS SUPPOSED TO GET A MACHINE TO CHECK INR AT HOME. REQUESTING HELP FROM CASE MANAGEMENT TO ACCELERATE PROCESS.
--- NOTE | 2019-04-22 05:21 | NUR ---
PO NORCO ADMINISTERED WITH SMALL SIP OF WATER PER ORDER. PT RATING PAIN 9/10. WILL MONITOR EFFECTIVENESS. CALL LIGHT IN REACH. PT PUT DRESSING ON L FOOT HERSELF. SCD REMAINS ON RLE.
[2019-04-22 06:45] LABS: BASO % 0.4 % (0.0-1.0); EOS # 0.2 10*3/uL (0.0-0.4); EOS % 1.8 % (1.0-4.0); HEMATOCRIT 34.6 % (37.0-47.0); HEMOGLOBIN 10.5 g/dl (12.0-16.0); LYMPH # 2.1 10*3/uL (1.3-4.4); LYMPH % 20.2 % (27.0-41.0); MEAN CELL VOLUME 91.1 fl (81.0-99.0); MEAN CORPUSCULAR HGB 27.6 pg (27.0-31.0); MEAN CORPUSCULAR HGB CONC 30.3 g/dl (33.0-37.0); MONO # 0.6 10*3/uL (0.1-1.0); NEUT # 7.3 10*3/uL (2.3-7.9); NEUT % 71.2 % (47.0-73.0); PLATELET COUNT AUTOMATED 434 10*3/uL (130-400); RED CELL DISTRI WIDTH 15.4 % (0-14.5); WHITE BLOOD COUNT 10.2 10*3/uL (4.8-10.8)
[2019-04-22 06:47] LABS: ACT PARTIAL THROMBO TIME 29.5 SECONDS (20.0-32.1)
[2019-04-22 07:14] LABS: BUN 8 mg/dl (7-24); CHLORIDE 110 mmol/L (98-107); CHOLESTEROL 168 mg/dL (<200); CREATININE 0.84 mg/dL (0.55-1.02); FREE T4 1.19 ng/dl (0.76-1.46); HDL CHOLESTEROL 18 mg/dl (40-60); LDL CHOLESTEROL 122 mg/dL (9-159); PHOSPHOROUS 2.8 mg/dL (2.5-4.9); POTASSIUM 3.8 mmol/L (3.5-5.1); SODIUM 139 mmol/L (136-145); TRIGLYCERIDES 142 mg/dl (<150); VLDL CHOLESTEROL 28 mg/dL (6-40)
--- NOTE | 2019-04-22 07:43 | NUR ---
PT MEDICATED WITH IV DILAUDID PER PRN ORDER FOR C/O LEFT FOOT PAIN. RATES PAIN 01/03. WILL MONITOR EFFECTIVENESS. VSS.
--- NOTE | 2019-04-22 08:18 | NUR ---
DAILY BUNN [id number] Please refer to the physician's history and physical for past medical history, comorbid conditions, and allergies. Diagnosis: OSTEOMYELITIS Brandon Score: 23,LOW OR NO RISK WOUND DESCRIPTIONS: Wound Number: 1 Location of the wound: LEFT FOOT GREAT TOE AMPUTATION SITE Type of wound: SURGICAL Thickness: Full Size: 2.5cm X 1.4cm X 0.7cm Tunneling: UNABLE TO ASSESS DUE TO PAIN Undermining: UNABLE TO ASSESS DUE TO PAIN Sinus Tract: UNABLE TO ASSESS DUE TO PAIN Presence of Exudate: Serous sanguineous Amount: Light Color: Black Odor: Foul Periwound Skin Appearance: Erythema, Edema Wound edges: APPROXIMATED Pain (associated with wound): TENDER TO TOUCH. PATIENT RATED PAIN 10/10. NURSE CARING FOR PATIENT WAS MADE AWARE PATIENT IS REQUESTING PAIN MEDICATION. How does patient state this happened? PATIENT STATES THAT THIS HAS BEEN GOING ON SINCE WHEN THE LEFT GREAT TOE WAS REMOVED. PATIENT STATES THAT THIS AREA NEVER COMPLETELY HEALED. If wound is on legs/feet or hands, capillary refill time, pulses, color temp, sensation: CAP REFILL < 3 SECONDS. Surface the patient is resting on: Isoflex SKIN PREVENTION RECOMMENDATION: 1. Pressure redistribution support surface as appropriate 2. Elevate heels 3. Remove boots/TEDS every shift and reapply 4. Head of bed 30 degrees as tolerated 5. Assess nutrition and hydration 6. Manage moisture 7. Avoid the use of containment devices while in bed 8. Use absorptive products on surfaces limit layers of linens on bed 9. Turn and reposition every 1-2 hours in bed and every 1 hour in chair as tolerated 10. Weight shifts every 15 minutes while up in chair 11. Offloading with pillows or device to keep heels elevated off bed 12. Monitor skin at least every shift 13. Inspect under medical devices twice a day WOUND TREATMENT RECOMMENDATIONS: PODIATRY AND ID ALREADY ON CONSULT. D/C STAGE 3 GUIDELINES FOR LEFT GREAT TOE AMPUTATION SITE. AWAIT ORDERS FROM PODIATRY POST SURGERY.
[2019-04-22 08:23] LABS: VITAMIN D, 25-HYDROXY 19.9 ng/mL (30-100)
--- NOTE | 2019-04-22 09:00 | NUR ---
Research Support Specialist in to talk to patient. Patient states lives at home with her 18 yo high functioning autistic son. There are 12 steps in the home. Physician: Man Wood [facility]acy: [facility] Home health services: [facility] Patient's level of ADLs: MINIMAL ASSIST Patient has working utilities: yes DME: walker, wheelchair Follow-up physician's appointment after d/c: will be made by the hospitalist nurse director upon discharge Does patient want to access PORTAL?: no Discharge plan discussed with patient. She lives at home with her son. She is independent in her ADLs and ambulates with a walker or gets around in a wheelchair. Discussed short term SNF and she refuses. Discussed home health care services and she is agreeable. When provided with a list of agencies she chose [facility]. She does have case therapist through [facility], Lexie Foxrochelle, work [phone], cell [phone]. When medically stable she will be discharged to home with [facility] services. Discussed the possibility of IV antibiotics at home and she states she is willing to learn how to administer. She states Man Wood was working on a machine for home to check her protime as she takes Coumadin. When medically stable she will be discharged to home with [facility] services. She states someone will provide transportation on discharge. JESÚS LUND
--- NOTE | 2019-04-22 10:13 | NUR ---
PT TAKEN OFF FLOOR FOR SCHEDULED PROCEDURE.
--- NOTE | 2019-04-22 10:24 | NUR ---
Dr. Anderson notified of wound care recommendations.
--- NOTE | 2019-04-22 13:20 | NUR ---
PT RESTING QUIETLY IN BED. DROWSY FROM SURGERY. HEAVY TWILIGHT WAS GIVEN PER REPORT. DRESSING D/I TO LEFT. NEW BAG OF IV FLUIDS INITIATED AT THIS TIME. IV ZOSYN INFUSING. SCHEDULED PO MEDS HELD AT THIS TIME DUE TO DROWSINESS. WILL CONTINUE TO MONITOR. BED ALARM MAINTAINED FOR SAFETY. CALL LIGHT WITHIN REACH.
--- NOTE | 2019-04-22 18:09 | NUR ---
ROUTINE NORCO ADMINISTERED AT THIS TIME PER ORDER. PT C/O LEFT FOOT PAIN. RATES PAIN 11/03. PRN DILAUDID NOT DUE. IV VANC INFUSING. WILL CONTINUE TO MONITOR. BULKY DRSG D/I TO LEFT FOOT. CALL LIGHT WITHIN REACH.
--- NOTE | 2019-04-22 20:00 | NUR ---
PATIENT MEDICATED WITH DILAUDID PER REQUEST. PATIENT C/O LEFT FOOT PAIN. RATES 01/03. WILL CHECK EFFECTIVENESS.
--- NOTE | 2019-04-22 20:00 | NUR ---
PATIENT GIVEN 0.5MG OF IV DILAUDID PER REQUEST. C.O LEFT FOOT PAIN. RATES 10/. PATIENT STATES TO PUSH IT FAST BECAUSE THATS THE ONLY WAY SHE CAN TELL THE MEDICATION WAS ACTUALLY GIVEN AND WORKING. REASSURED PATIENT SHE WAS RECEVING THE FULL DOSE OF DILAUDID THAT WAS PRESCRIPED AND IT IS NOT MEANT TO BE PUSHED QUICKLY. PATIENT STATES SHE BELIEVES HER NURSE LAST NIGHT WAS ONLY GIVING HER SALINE BECAUSE SHE DIDNT PUSH IT QUICKLY ENOUGH AND SHE COULDNT FEEL THE EFFECT INSTANTLY. REASSURED PATIENT SHE IS RECEIVING THE CORRECT DOSE OF DILAUDID. REMINDED PATIENT THAT THE DILAUDID IS PRN AND IF PATIENT IS IN PAIN AND NEEDS THE PAIN MEDICATION SHE MUST ASK FOR IT. UPDATED THE WHITE BOARD WHEN MEDICATION IS AVAILABLE AGAIN. WILL CHECK EFFECTIVENESS.
--- NOTE | 2019-04-22 20:00 | NUR ---
PATIENT GIVEN 1MG OF IV DILAUDID PER REQUEST. C.O LEFT FOOT PAIN. RATES 10/10. PATIENT STATES TO PUSH IT FAST BECAUSE THATS THE ONLY WAY SHE CAN TELL THE MEDICATION WAS ACTUALLY GIVEN AND WORKING. REASSURED PATIENT SHE WAS RECEVING THE FULL DOSE OF DILAUDID THAT WAS PRESCRIPED AND IT IS NOT MEANT TO BE PUSHED QUICKLY. PATIENT STATES SHE BELIEVES HER NURSE LAST NIGHT WAS ONLY GIVING HER SALINE BECAUSE SHE DIDNT PUSH IT QUICKLY ENOUGH AND SHE COULDNT FEEL THE EFFECT INSTANTLY. REASSURED PATIENT SHE IS RECEIVING THE CORRECT DOSE OF DILAUDID. REMINDED PATIENT THAT THE DILAUDID IS PRN AND IF PATIENT IS IN PAIN AND NEEDS THE PAIN MEDICATION SHE MUST ASK FOR IT. UPDATED THE WHITE BOARD WHEN MEDICATION IS AVAILABLE AGAIN. WILL CHECK EFFECTIVENESS.
--- NOTE | 2019-04-22 21:32 | NUR ---
UPON ENTERING ROOM, PATIENT SEEN MOANING AND ROCKING BACK AND FORTH. PATIENT GIVEN SCHEDULED NORCO. PATIENT STATES SHE HAS BEEN TAKING 7.5MG VICODIN FOR 2YEARS NOW AND THEY DO NOTHING FOR HER. WHEN ASKED HOW OFTEN THE VICODIN ARE PRESCRIBED, PATIENT STATED EVERY 6 HOURS BUT SHE WILL TAKE THEM EVERY 2HOURS. THIS NURSE STATED SHE WOULD NOTIFY THE DOCTOR AND SEE IF HE WOULD ORDER HER SOMETHING ELSE PATIENT GIVEN SCHEDULED NORCO AT THIS TIME. RATES PAIN 10/10 STILL. WILL CHECK EFFECTIVENESS.
--- NOTE | 2019-04-22 22:00 | NUR ---
NOTIFIED DR. APPLE PATIENT IS REQUESTING SOMETHING ELSE FOR PAIN AND THAT SHE TAKES 7.5MG VICODIN AT HOME. PER DR. APPLE CONTINUE GIVING PATIENT DILAUDID AND NORCO PRESCRIPED. NO NEW ORDERS RECEIVED. WILL CONTINUE TO MONITOR.
--- NOTE | 2019-04-22 22:00 | NUR ---
PATIENT WALKING AROUND PUTTING WEIGHT ON LEFT FOOT. REMINDED PATIENT SHE IS TO BE NWB ON LEFT FOOT. PATIENT REFUSING TO WEAR SCDS WELL. WILL CONTINUE TO MONITOR.
--- NOTE | 2019-04-22 22:00 | NUR ---
PATIENT WALKING AROUND ROOM PUTING WEIGHT ON RIGHT FOOT. REMINDED PATIENT SHE IS TO BE NON WEIGHT BARING. PATIENT ALSO REFUSING TO WEAR SCDS.WILL CONTINUE TO MONITOR.
--- NOTE | 2019-04-22 22:55 | NUR ---
DUE TO PAIN MEDICATION NOT BEING DUE YET, PATIENT IS REQUESTING ATIVAN. PATIENT MEDICATED AT THIS TIME. WILL CHECK EFECTIVENESS.
--- NOTE | 2019-04-22 23:30 | NUR ---
PATIENT REFUSES TO SIT STILL LONG ENOUGH TO OBTAIN ACCURATE BLOOD PRESSURE. WILL RETRY.
--- NOTE | 2019-04-22 23:48 | NUR ---
NOTIFIED DR. APPLE PATIENT IS REQUESTING SOMETHING ELSE FOR PAIN AND THAT SHE TAKES 7.5MG VICODIN AT HOME. PER DR. APPLE CONTINUE GIVING PATIENT DILAUDID AND NORCO PRESCRIBED. NO NEW ORDERS RECEIVED. WILL CONTINUE TO MONITOR.
--- NOTE | 2019-04-23 00:25 | NUR ---
PATIENT MEDICATED WITH DILAUDID PER REQUEST. RATES PAIN 10/10. PATIENT STATES ATIVAN HAS CALMED HER DOWN. BELIEVES SHE SHOULD RECEIVE ATIVAN EVERY TIME SHE GETS A PAIN PILL OR SHOT. STATED HER ATIVAN IS ORDERED EVERY 8 HOURS, HOW IT IS PRESCRIBED TO HER AT HOME. PATIENT STATES ITS NEEDED. THIS NURSE STATED YES NEEDED, EVERY 8 HOURS. PATIENT STATED SHE TAKES IT MORE OFTEN THAN THAT. WILL CONTINUE TO ZAIN.
--- NOTE | 2019-04-23 02:13 | NUR ---
PATIENT MEDICATED WITH PRN RESTORIL ORDERD FOR C/O INSOMNIA.
--- NOTE | 2019-04-23 03:55 | NUR ---
PATIENT RIPPED IV OUT. NEW IV STARTED IN PATIENTS LEFT AC. TOLERATED WELL. THIS NURSE NOTICED PATIENT HAD MULTIPLE PILL BOTTLES IN PURSE. EXPLAINED TO HER IT IS HOSPITAL POLICY AND HER MEDICATIONS NEEDED TO BE COUNTED AND SENT TO PHARMACY. PATIENT AGGREABLE. PATIENT HAS AN EMPTY VICODIN PRESCRIPTION BOTTLE REMAINING IN PURSE. WILL CONTINUE TO MONITOR.
--- NOTE | 2019-04-23 04:10 | NUR ---
PATIENT AGAIN, WALKING AROUND ROOM PUTTING WEIGHT ON LEFT FOOT. AGAIN REMINDED PATIENT SHE IS TO BE NWB ON THAT FOOT.WILL CONTINUE TO MONITOR.
[2019-04-23 05:49] LABS: BASO % 0.2 % (0.0-1.0); EOS # 0.1 10*3/uL (0.0-0.4); EOS % 0.9 % (1.0-4.0); HEMOGLOBIN 10.3 g/dl (12.0-16.0); LYMPH # 1.8 10*3/uL (1.3-4.4); LYMPH % 16.1 % (27.0-41.0); MEAN CELL VOLUME 89.7 fl (81.0-99.0); MEAN CORPUSCULAR HGB CONC 31.2 g/dl (33.0-37.0); MEAN PLATELET VOLUME 9.8 fl (9.6-12.3); MONO # 0.7 10*3/uL (0.1-1.0); MONO % 6.1 % (3.0-9.0); NEUT # 8.7 10*3/uL (2.3-7.9); NEUT % 76.4 % (47.0-73.0); PLATELET COUNT AUTOMATED 439 10*3/uL (130-400); RED BLOOD COUNT 3.68 10*6/uL (4.10-5.10); RED CELL DISTRI WIDTH 15.4 % (0-14.5); WHITE BLOOD COUNT 11.3 10*3/uL (4.8-10.8)
--- NOTE | 2019-04-23 05:50 | NUR ---
PATIENT BLOOD SUGAR,79.GIVEN COOKIES AND PEANUTBUTTER
[2019-04-23 05:57] LABS: BUN 7 mg/dl (7-24); CHLORIDE 111 mmol/L (98-107); CREATININE 0.76 mg/dL (0.55-1.02); POTASSIUM 3.5 mmol/L (3.5-5.1); SODIUM 139 mmol/L (136-145)
[2019-04-23 06:00] LABS: VANCOMYCIN TROUGH 16.6 ug/mL (10-20)
[2019-04-23 08:00] VITALS: BP 126/64
--- NOTE | 2019-04-23 08:15 | NUR ---
DILAUDID GIVEN PER PATIENT REQUEST FOR COMPLAINTS OF FOOT PAIN RATED 9/10. WILL ASSESS EFFECTIVENESS.
--- NOTE | 2019-04-23 08:52 | NUR ---
Spoke with Dr. Garcia regarding post op wound care orders he stated he will put them in when he rounds today.
--- NOTE | 2019-04-23 09:00 | NUR ---
PATIENT STATED DULAUDID WAS SLIGHTLY EFFECTIVE BUT "NOT MUCH". PATIENT RATING PAIN 7/10. WILL CONTINUE TO MONITOR.
--- NOTE | 2019-04-23 10:30 | NUR ---
Wheelman in to see patient. No new needs or requests at this time. When medically stable she will be discharged to home with [facility] services.
--- NOTE | 2019-04-23 11:06 | NUR ---
Nutritional Support Services Note: Patient has a wound to her left foot and osteomyelitis. She states she has no appetite, although PO intake is documented at 100%. And when offered a supplement, she refused. She is on an 1800 katy diet and will receive a bedtime snack. Educated pt on the importance of adequate nutrition for wound healing. DEREK Michaud dietitic agronomy internship
--- NOTE | 2019-04-23 11:58 | NUR ---
DILAUDID GIVEN PER PATIENT REQUEST FOR COMPLAITS OF LEFT FOOT PAIN RATED 10/10. WILL ASSESS EFFECTIVENESS.
[2019-04-23 12:00] VITALS: BP 119/85
--- NOTE | 2019-04-23 12:50 | NUR ---
TYLENOL GIVEN FOR TEMP OF 100.1. WILL ASSESS EFFECTIVENESS.
--- NOTE | 2019-04-23 13:40 | NUR ---
Occupational therapy orders received and chart reviewed. Patient was seated in bed eating her lunch upon arrival. Patient requesting we return at a later time for eval. Will follow up, thank you. Latonya Mireles, OTR/L
[2019-04-23 14:08] LABS: ACID FAST SPEC PROCESSING Tissue Grinding (.)
--- NOTE | 2019-04-23 14:15 | NUR ---
Occupational therapy orders received and OT evaluation completed in full on floor five. Patient precautions include fall risk, ww use, LLE NWB, RLE WBAT, and increased pain. Per OT eval, OT recommends a SNF. However, patient would like to return home and wants home health aids. If refusing SNF, patient would benefit from HH SN, OT, and PT with supervision assist. Patient would benefit from continued OT treatment to maximize her safety and independence with her L LE NWB status during ADLs, mobility, and transfers. [place], [id number]. Thank you for the referral. Latonya Mireles, OTR/L
--- NOTE | 2019-04-23 14:56 | NUR ---
SPOKE WITH DR NOEL REGARDING DR REID'S NOTE ABOUT THE PATIENT POSSIBLY GETTING A PICC LINE. DR NOEL STATED HE DID NOT THINK THAT THE PATIENT WOULD BE GETTING ONE BUT THAT HE WOULD LET US KNOW IF SHE IS TO GET ONE.
--- NOTE | 2019-04-23 15:57 | NUR ---
PHYSICAL THERAPY Eval completed moderate level of complexity would benfit from rehab but pt refuses to go anywhere but home recommend f/u HH first floor set up. PT to work on transfer,Amb,strenghthening balance/safety. Yasmine Caballero PT
[2019-04-23 16:00] VITALS: BP 143/67
[2019-04-23 20:00] VITALS: BP 139/64
--- NOTE | 2019-04-23 20:50 | NUR ---
PT MEDICATED W/NORCO FOR C/O LT FOOT THROBBING PAIN 01/03. PT TAKING DEBRA WRAP AND BANDAGE OFF OF FOOT. PT TEACHING GIVEN ON LEAVING DRSG ALONE. LT FOOT REDRESSED. WILL CONTINUE TO MONITOR.
--- NOTE | 2019-04-23 22:14 | NUR ---
PT ACCEPTED ONLY 10 UNITS OF NOVOLIN 70/30 AT THIS TIME.
--- NOTE | 2019-04-23 23:44 | NUR ---
PT MEDICATED W/DILAUDID FOR C/O LT FOOT PAIN 01/03. PT RESTLESS IN BED. PT REFUSING ICE TO FOOT. PT ENCOURAGED TO ELEVATE FOOT. PT REFUSING. CALL LIGHT IN REACH.
[2019-04-24] VITALS: BP 143/69
--- NOTE | 2019-04-24 00:10 | NUR ---
PT MEDICATED W/ATIVAN PER REQUEST TO HELP PT RELAX. PT ENCOURAGED TO LIE DOWN TO SLEEP. PT SITTING ON BED AND ROCKING. WILL MONITOR. LIGHTS AND TV TURNED OFF. CALL LIGHT IN REACH.
--- NOTE | 2019-04-24 02:00 | NUR ---
PT CALLED THIS NURSE INTO ROOM AT THIS TIME. PT HAD REMOVED DRSG TO LT FOOT AND WAS PICKING AT INCISION. PT TEACHING GIVEN ON INFECTION CONTROL AND NOT TO REMOVE DRSG. THIS NURSE CLEANSED WOUND W/NS AND REAPPLIED DRSG ORDERED. PT REFUSING DEBRA WRAP AT THIS TIME. ENCOURAGED PT TO REST TO PROMOTE WOUND HEALING. PT REFUSING. CALL LIGHT IN REACH.
[2019-04-24 02:16] VITALS: BP 98/60
[2019-04-24 06:35] LABS: BASO % 0.2 % (0.0-1.0); EOS # 0.1 10*3/uL (0.0-0.4); EOS % 0.5 % (1.0-4.0); HEMATOCRIT 30.9 % (37.0-47.0); HEMOGLOBIN 9.7 g/dl (12.0-16.0); LYMPH # 1.5 10*3/uL (1.3-4.4); LYMPH % 11.1 % (27.0-41.0); MEAN CELL VOLUME 88.5 fl (81.0-99.0); MEAN CORPUSCULAR HGB 27.8 pg (27.0-31.0); MEAN CORPUSCULAR HGB CONC 31.4 g/dl (33.0-37.0); MEAN PLATELET VOLUME 10.2 fl (9.6-12.3); MONO % 7.2 % (3.0-9.0); NEUT # 10.9 10*3/uL (2.3-7.9); NEUT % 80.6 % (47.0-73.0); PLATELET COUNT AUTOMATED 409 10*3/uL (130-400); RED BLOOD COUNT 3.49 10*6/uL (4.10-5.10); RED CELL DISTRI WIDTH 15.7 % (0-14.5); WHITE BLOOD COUNT 13.6 10*3/uL (4.8-10.8)
[2019-04-24 06:47] LABS: BUN 5 mg/dl (7-24); CHLORIDE 106 mmol/L (98-107); CREATININE 0.75 mg/dL (0.55-1.02); POTASSIUM 3.5 mmol/L (3.5-5.1); SODIUM 138 mmol/L (136-145)
[2019-04-24 08:00] VITALS: BP 128/62; BP 136/76
--- NOTE | 2019-04-24 08:52 | NUR ---
OT NOTE Attempted to see pt this A.M. for OT session and upon arrival pt was eating her breakfast. Will check back at a later time and continue with POC as able. WALESKA Garcia
--- NOTE | 2019-04-24 09:00 | NUR ---
Presentation Specialist in to see patient. No new needs or requests at this time. When medically stable she will be discharged to home with [facility] services and [facility] for home IV antibiotics.
--- NOTE | 2019-04-24 11:32 | NUR ---
Faxed [facility] to check cost of Ertapenem 1 GM IV daily and Zosyn 3.375 GM IV q6h. Awaiting response.
--- NOTE | 2019-04-24 11:54 | NUR ---
C/O PAIN TO LEFT FOOT OF 01/03. IV DILAUDID GIVEN PER REQUEST. WILL CONT TO MONITOR. CALL LIGHT IN REACH.
[2019-04-24 12:00] VITALS: BP 161/83
--- NOTE | 2019-04-24 12:11 | NUR ---
TYLENOL GIVEN FOR ELEVATED TEMP. WILL CONT MONITOR. CALL LIGHT IN REACH.
--- NOTE | 2019-04-24 12:54 | NUR ---
PT STATES DILAUDID WORKS GOOD. WILL CONT TO MONITOR. CALL LIGHT IN REACH.
--- NOTE | 2019-04-24 13:00 | NUR ---
OT NOTE Pt was seen this P.M. 1:1 for 15 minute OT session. Upon arrival pt was supine in bed. Pt identified by name and and had complaints of 10/10 L foot pain. Pt transferred supine to sit EOB with SBA. While sitting EOB pt donned R sock and shoe with supervision. Pt completed multiple sit to stand transfers from bed level with SBA and use of w/w. Challenged pt's static standing tolerance needed for increased I in self care tasks and functional transfers, pt tolerated her L foot being down for aprox 5 seconds before lifting and placing it on the bed stating "I hurts bad when it is down". Educated pt on safety concerns. Pt then completed standing pivot from the EOB <> bedside commode with CGA due to poor safety awareness and being impulsive increasing risk of falls. Pt then transferred back into bed sit to supine with supervision. There she was left with call light in hand, tray table in place, and phone in reach. Continue with POC as able. AWLESKA Garcia
--- NOTE | 2019-04-24 13:21 | NUR ---
PHYSICAL THERAPY TREATMENT TIME: 12:44 PM - 12:59 PM 15 MINUTES Patient presented to therapy in supine in bed with bed alarm not on and report of 10/10 pain in the L foot. Patient was identified by name and on wristband. Patient gives informed consent for treatment. Patient performed supine to sitting at EOB transfer with SBA. Patient sit to stand from EOB with SBA. Patient stood at Walker with SBA - CGA FOR 2 MINUTES with L LE up on bed at one time and good compliance with NWB on L LE. Patient SPT to bedside <> chair with SBA-CGA. Patient declined ambulation attempt due to being in too much pain at this time. Patient transferred back to supine in bed with SBA. Patient was left long sitting in bed with head of bed elevated, call light within reach and tray table near patient. Patient was 1:1 with this CAR SHIFTER for 15 minutes total. ESTRELLA GREENBERG CAR SHIFTER
--- NOTE | 2019-04-24 14:21 | NUR ---
NORCO GIVEN FOR C/O PAIN TO LEFT FOOT OF 01/03. WILL CONT TO MONITOR. CALL LIGHT IN REACH.
--- NOTE | 2019-04-24 14:30 | NUR ---
ENTERED ROOM AND PT HAD DRESSIN OFF OF FOOT AND WAS RUBBING THE FOOT. I ASKED HER WHY THE DRESSING WAS OFF AND SHE STATED BECAUSE SHE TOOK IT OFF. FOOT WAS REDRESSED AT THIS TIME. PT EDUCATED. WILL CONT TO MONITOR. CALL LIGHT IN REACH.
--- NOTE | 2019-04-24 14:35 | NUR ---
Spoke to Christin at [facility] regarding home IV antibiotics. They have received the referral and are sending the referral to I as it is the [facility] Community Plan and they are limited. She will have 100% coverage. Awaiting to hear from I.
--- NOTE | 2019-04-24 14:46 | NUR ---
Patient requested CM call her Direction Home manufacturing quality manager Lexie to discuss discharge planning. Spoke to Lexie at [phone] and notified of potential discharge tomorrow with IV antibiotics and [facility].
--- NOTE | 2019-04-24 15:05 | NUR ---
Notified hospitalist nurse director for new home health order for [facility].
--- NOTE | 2019-04-24 15:08 | NUR ---
Reached out to Dr. Fairbanks to notify patient is covered at 100% for home IVs. Which IV antibiotic is she going to go home on, Zosyn vs Ertapenem? Awaiting return call.
--- NOTE | 2019-04-24 15:09 | NUR ---
Spoke to Dr. Fairbanks. Ertapenem 1 gm IV daily for 6 weeks from the day of surgery. Awaiting script.
--- NOTE | 2019-04-24 15:19 | NUR ---
Late entry. Spoke to Dr. Fairbanks regarding prescription for home IV antibiotics. She states she was in clinic and going to be late today or it will be tomorrow, could CM ask attending to write prescription for Ertapenem 1 GM IV daily for 6 weeks from the day of surgery. Notified hospitalist nurse director.
--- NOTE | 2019-04-24 15:21 | NUR ---
PT STATES KENNEDALE HELPED A LITTLE BIT. WILL CONT TO MONITOR. CALL LIGHT IN REACH.
[2019-04-24 16:00] VITALS: BP 125/66
--- NOTE | 2019-04-24 18:00 | NUR ---
PT REQUESTS IV DILAUDID FOR C/O OF LEFT FOOT PAIN OF 01/03. GIVEN AT THIS TIME. WILL CONT TO MONITOR. CALL LIGHT IN REACH.
--- NOTE | 2019-04-24 19:15 | NUR ---
Shift chart check completed.24 HR chart check completed.
[2019-04-24 20:00] VITALS: BP 128/71
--- NOTE | 2019-04-24 20:14 | NUR ---
ON ASSESSMENT PATIENT SITTING CROSS LEGGED, BRAZILIAN STYLE IN BED. DRESSING INTACT TO RT FOOT, SMALL AMOUNT BRIGHT RED BLOOD SEEN EXTERNALLY. SOME EDUCATION DONE ABOUT PICC LINE'S, CLEANING HUBS, CAPS TO HUBS. PT ROCKING AND MOANING SOMEWHAT, SAYING SHE CAN "HAVE MY NORCO ABOUT 8:20". REASSURANCES GIVEN THAT I WILL BRING WHEN I COME TO FLUSH HER PICC LINE AFTER ANTIBIOTIC INFUSED. RESPIRATIONS EASY. BED IN LOW POSITION WITH WHEELS LOCKED. SEE ALL APPROPRIATE INTERVENTIONS.
--- NOTE | 2019-04-24 20:30 | NUR ---
FRANKIE FOR "10"/10 PAIN IN HER FOOT.
--- NOTE | 2019-04-24 21:48 | NUR ---
PAIN NOW A "9"/10 SINCE EARLIER NORCO. "IT TAKES THE EDGE OFF".
--- NOTE | 2019-04-24 23:49 | NUR ---
ASSUMED CARE FOR THIS PT AT THIS TIME. PT SITTING ON BED WATCHING TV. DRSG TO LEFT FOOT DRY/INTACT. CALL LIGHT IN REACH.
[2019-04-25] VITALS: BP 106/73
--- NOTE | 2019-04-25 01:08 | NUR ---
PT MEDICATED W/DILAUDID FOR C/O LT FOOT PAIN 01/03. CALL LIGHT IN REACH.
[2019-04-25] MEDS ORDERED: ERTAPENEM1 GM IV (04:56)
--- NOTE | 2019-04-25 06:01 | NUR ---
PT MEDICATED W/NORCO FOR C/O LT FOOT PAIN 01/03. PT WANTING DILAUDID SHOT. PT TEACHING GIVEN ON PRN TIMES AND WHITE BOARD UPDATED TO REMIND PT. PT EATING BOX LUNCH AND DRINKING OJ FOR BS OF 59. NO S/S OF HYPOGLYCEMIA NOTED. CALL LIGHT IN REACH.
[2019-04-25 06:07] LABS: BUN 6 mg/dl (7-24); CHLORIDE 105 mmol/L (98-107); CREATININE 0.83 mg/dL (0.55-1.02); POTASSIUM 3.5 mmol/L (3.5-5.1); SODIUM 138 mmol/L (136-145)
[2019-04-25 06:08] LABS: BASO % 0.2 % (0.0-1.0); EOS # 0.1 10*3/uL (0.0-0.4); EOS % 0.5 % (1.0-4.0); HEMATOCRIT 31.9 % (37.0-47.0); HEMOGLOBIN 9.9 g/dl (12.0-16.0); LYMPH # 1.5 10*3/uL (1.3-4.4); LYMPH % 11.7 % (27.0-41.0); MEAN CELL VOLUME 89.4 fl (81.0-99.0); MEAN CORPUSCULAR HGB 27.7 pg (27.0-31.0); MEAN PLATELET VOLUME 10.3 fl (9.6-12.3); MONO # 0.9 10*3/uL (0.1-1.0); MONO % 6.8 % (3.0-9.0); NEUT # 10.6 10*3/uL (2.3-7.9); NEUT % 80.3 % (47.0-73.0); PLATELET COUNT AUTOMATED 430 10*3/uL (130-400); RED BLOOD COUNT 3.57 10*6/uL (4.10-5.10); RED CELL DISTRI WIDTH 15.5 % (0-14.5); WHITE BLOOD COUNT 13.2 10*3/uL (4.8-10.8)
[2019-04-25 06:36] LABS: INTERNATIONAL NORM RATIO 1.1 (2.0-3.5)
--- NOTE | 2019-04-25 07:33 | NUR ---
Faxed prescription for Ertapenem 1 GM IV daily to [facility].
[2019-04-25 08:00] VITALS: BP 111/61
--- NOTE | 2019-04-25 08:35 | NUR ---
Spoke to Cata from [facility]. Patient is covered at 100%. Faxed prescription and PICC information. Will call Cata when patient is being discharged.
--- NOTE | 2019-04-25 09:00 | NUR ---
Manager Outpatient in to see patient. Discussed her home IV antibiotics are covered at 100%. She remains agreeable to learn how to give her home IV antibiotics. Discussed home health care will show her how to administer and she verbalized an understanding. When medically stable she will be discharged to home.
--- NOTE | 2019-04-25 10:19 | NUR ---
PHYSICAL THERAPY TREATMENT TIME: 09:59 AM - 10:15 AM 16 MINUTES TOTAL. Patient presented to therapy in sitting in long sitting in bed with report of 10/10 pain in the L LE/FOOT. Patient gives informed consent for treatment. Patient was identified by name and on wristband. Patient performed sitting at EOB with SBA. Patient transferred sit to stand from EOB with SBA. Patient transferred <> bedside chair with SBA. Patient ambulated with Wh Walker and Close Supervision for 40' x 1 maintaining NWB on the L LE the entire gait distance. Patient transferred back to supine in bed with SBA. Patient left in supine with head of bed elevated and call light within reach. PATIENT IS MOD I IN ROOM THROUGHOUT THE DAY TRANSFERRING <> THE BEDSIDE COMMODE. Patient was 1:1 with this COFFEE SUPERVISOR for 16 minutes total. ESTRELLA GREENBERG COFFEE SUPERVISOR
--- NOTE | 2019-04-25 10:27 | NUR ---
Faxed home health referral to [facility]. Waiting on face to face.
--- NOTE | 2019-04-25 10:55 | NUR ---
OT NOTE PATIENT SEEN 15 MINUTES OT THIS DATE. PATIENT INDENTIFIED BY NAME AND DATE OF . PATIENT RELUCTANT BUT WILLING TO COMPLETE OT WITH EDUCATION. PATIENT COMPLETED BEDSIDE COMMODE TO AND FROM BED TRANSFER STAND PIVOT TRANSFER SBA WITH GOOD CARRY OVER L LE NWB STATUS. PATIENT COMPLETED STAND TOLERANCE ACTIVITY USE FWW SUPPORT APPROX 2 MINUTES SBA WITH GOOD CARRYOVER L LE NWB. PATIENT DECLIND TO TRIAL TOILET TRANSFER STATING THAT SHE WAS NOT GOING TO COMPLETE TOILET TRANSFER TODAY. PATIENT COMPLETED BED MOBILITY SUPERVISION. PATIENT IN BED END OF SESSION WITH NO FURTHER NEEDS VERBALIZED. CONTINUE TOWARDS PLAN OF CARE. JAZZMINE LARA/Kat
--- NOTE | 2019-04-25 11:50 | NUR ---
Message left for Cata at [facility] regarding patient being discharged to home today and spoke to Davina at [facility] regarding patient being discharged home today.
--- NOTE | 2019-04-25 12:22 | NUR ---
PT DISCHARGED AT THIS TIME. VERBALIZED UNDERSTANDING OF DISCHARGE INSTRUCTIONS. PT REFUSED DISCHARGE PHOTOS. PT UPSET THAT DILAUDID WAS NOT DUE PRIOR TO HER LEAVING. OFFERED PO PAIN MEDS AND REFUSED.
--- NOTE | 2019-04-25 13:04 | NUR ---
[place] [facility] [place] dose of Ertapenem will [place] in the house they need a prescription for an anaphylactic kit. Hospitalist nurse director notified.
--- NOTE | 2019-04-25 14:19 | NUR ---
Faxed anaphylactic kit prescription to [facility]
--- NOTE | 2019-04-25 14:22 | NUR ---
Faxed face to face to [facility]
--- NOTE | 2019-04-26 15:36 | NUR ---
PHYSICAL THERAPY CO-SIGN I approve of the Physical Therapy notes written above. Yasmine Caballero PT
--- NOTE | 2019-04-26 16:01 | NUR ---
OCCUPATIONAL THERAPY CO-SIGN I approve of the Occupational Therapy notes written above. LD BIRD OTR/Kat
== END 2019-04-25 12:22 | disposition home or self-care (01) | DRG 710 ==
LOC: ED 07:06 → 5E 08:23 → EDHOLD 08:23 → 5E 08:27
PROVIDERS: Emergency Medicine; Family Medicine; Internal Medicine; Podiatrist; Student in an Organized Health Care Education/Training Program; ADMIT Emergency Medicine
PROC: 0JBR0ZZ Excision of Left Foot Subcutaneous Tissue and Fascia, Open Approach (ICD-10-PCS; principal; 2019-04-22)
PROC: 0QTP0ZZ Resection of Left Metatarsal, Open Approach (ICD-10-PCS; 2019-04-22)
PROC: 0QTP0ZZ Resection of Left Metatarsal, Open Approach (ICD-10-PCS; 2019-04-22)
DX: A41.9 Sepsis, unspecified organism (principal); E44.0 Moderate protein-calorie malnutrition; L97.529 Non-pressure chronic ulcer of other part of left foot with unspecified severity; E66.9 Obesity, unspecified; D64.9 Anemia, unspecified; D47.3 Essential (hemorrhagic) thrombocythemia; R73.9 Hyperglycemia, unspecified; M86.8X7 Other osteomyelitis, ankle and foot; R74.8 Abnormal levels of other serum enzymes; F17.210 Nicotine dependence, cigarettes, uncomplicated; I10 Essential (primary) hypertension; K57.90 Diverticulosis of intestine, part unspecified, without perforation or abscess without bleeding; K29.70 Gastritis, unspecified, without bleeding; E78.5 Hyperlipidemia, unspecified; E55.9 Vitamin D deficiency, unspecified; I73.9 Peripheral vascular disease, unspecified; Z71.6 Tobacco abuse counseling; Z90.49 Acquired absence of other specified parts of digestive tract; Z98.51 Tubal ligation status; Z83.3 Family history of diabetes mellitus; Z83.6 Family history of other diseases of the respiratory system; Z82.49 Family history of ischemic heart disease and other diseases of the circulatory system; Z86.73 Personal history of transient ischemic attack (TIA), and cerebral infarction without residual deficits; Z68.32 Body mass index [BMI] 32.0-32.9, adult

== ENCOUNTER 2019-10-04 07:57 | Emergency (ER) | payer MEDICAID ==
[~2019-10-04] VITALS: Ht 172.7 cm; Wt 97.5 kg
[~2019-10-04 07:57] MED LIST changes: +ATIVAN0.5 MG PO; +Coumadin7.5 MG PO; +ERTAPENEM1 GM IV; +GABAPENTIN800 MG PO; +LIPITOR40 MG PO; +NEURONTIN400 MG PO; +OXAYDO7.5 MG PO; +VICO75300 PO
[2019-10-04 08:32] LABS: BASO % 0.2 % (0.0-1.0); EOS # 0.1 10*3/uL (0.0-0.4); EOS % 0.8 % (1.0-4.0); HEMATOCRIT 28.4 % (37.0-47.0); LYMPH # 1.1 10*3/uL (1.3-4.4); LYMPH % 9.2 % (27.0-41.0); MEAN CELL VOLUME 73.4 fl (81.0-99.0); MEAN CORPUSCULAR HGB 20.7 pg (27.0-31.0); MEAN CORPUSCULAR HGB CONC 28.2 g/dl (33.0-37.0); MEAN PLATELET VOLUME 9.5 fl (9.6-12.3); MONO # 0.8 10*3/uL (0.1-1.0); MONO % 6.4 % (3.0-9.0); NEUT # 10.2 10*3/uL (2.3-7.9); NEUT % 82.9 % (47.0-73.0); PLATELET COUNT AUTOMATED 452 10*3/uL (130-400); RED BLOOD COUNT 3.87 10*6/uL (4.10-5.10); RED CELL DISTRI WIDTH 21.1 % (0-14.5); WHITE BLOOD COUNT 12.4 10*3/uL (4.8-10.8)
[2019-10-04 08:42] LABS: ACT PARTIAL THROMBO TIME 28.5 SECONDS (20.0-32.1)
[2019-10-04 08:48] LABS: ALBUMIN 2.6 gm/dl (3.1-4.5); ALKALINE PHOSPHATASE 134 U/L (45-117); BUN 8 mg/dl (7-24); CHLORIDE 105 mmol/L (98-107); CPK 35 U/L (26-192); CREATININE 0.85 mg/dL (0.55-1.02); POTASSIUM 4.1 mmol/L (3.5-5.1); SGOT/AST 9 IU/L (3-35); SGPT/ALT 9 U/L (12-78); SODIUM 137 mmol/L (136-145); TOTAL PROTEIN 7.7 gm/dL (6.4-8.2)
[2019-10-04 08:58] LABS: TROPONIN I 0.513 ng/ml (<0.045)
[2019-10-04 09:55] VITALS: BP 125/71
== END 2019-10-04 11:09 | disposition short-term general hospital (02) ==
LOC: ED 07:57
PROVIDERS: Emergency Medicine
DX: M62.262 Nontraumatic ischemic infarction of muscle, left lower leg (principal); R79.89 Other specified abnormal findings of blood chemistry; R79.1 Abnormal coagulation profile; I10 Essential (primary) hypertension; E78.5 Hyperlipidemia, unspecified; E11.9 Type 2 diabetes mellitus without complications; E78.00 Pure hypercholesterolemia, unspecified; J45.909 Unspecified asthma, uncomplicated; F17.200 Nicotine dependence, unspecified, uncomplicated; Z79.899 Other long term (current) drug therapy; Z79.4 Long term (current) use of insulin; Z79.82 Long term (current) use of aspirin

== ENCOUNTER 2019-10-23 17:01 | Emergency (ER) | payer MEDICAID ==
[~2019-10-23] VITALS: Ht 172.7 cm; Wt 102.1 kg
[2019-10-23 17:08] VITALS: BP 140/82
[2019-10-23 17:42] LABS: BASO % 0.3 % (0.0-1.0); EOS # 0.1 10*3/uL (0.0-0.4); EOS % 1.5 % (1.0-4.0); HEMATOCRIT 31.6 % (37.0-47.0); LYMPH # 1.5 10*3/uL (1.3-4.4); LYMPH % 17.2 % (27.0-41.0); MEAN CELL VOLUME 77.8 fl (81.0-99.0); MEAN CORPUSCULAR HGB 21.7 pg (27.0-31.0); MEAN CORPUSCULAR HGB CONC 27.8 g/dl (33.0-37.0); MEAN PLATELET VOLUME 9.6 fl (9.6-12.3); MONO # 0.5 10*3/uL (0.1-1.0); MONO % 5.5 % (3.0-9.0); NEUT # 6.7 10*3/uL (2.3-7.9); NEUT % 75.2 % (47.0-73.0); PLATELET COUNT AUTOMATED 652 10*3/uL (130-400); RED BLOOD COUNT 4.06 10*6/uL (4.10-5.10); RED CELL DISTRI WIDTH 22.1 % (0-14.5); WHITE BLOOD COUNT 8.9 10*3/uL (4.8-10.8)
[2019-10-23 17:54] LABS: ACT PARTIAL THROMBO TIME 28.3 SECONDS (20.0-32.1); INTERNATIONAL NORM RATIO 1.1 (2.0-3.5)
[2019-10-23 17:57] LABS: ALBUMIN 2.5 gm/dl (3.1-4.5); ALKALINE PHOSPHATASE 112 U/L (45-117); BUN 10 mg/dl (7-24); CHLORIDE 107 mmol/L (98-107); CREATININE 0.69 mg/dL (0.55-1.02); POTASSIUM 3.7 mmol/L (3.5-5.1); SGOT/AST 8 IU/L (3-35); SGPT/ALT 10 U/L (12-78); SODIUM 138 mmol/L (136-145); TOTAL PROTEIN 7.5 gm/dL (6.4-8.2)
== END 2019-10-23 18:31 | disposition home or self-care (01) ==
LOC: ED 17:01
PROVIDERS: Nurse Practitioner Family
DX: M79.604 Pain in right leg (principal); J45.909 Unspecified asthma, uncomplicated; E78.00 Pure hypercholesterolemia, unspecified; E11.9 Type 2 diabetes mellitus without complications; Z79.899 Other long term (current) drug therapy; Z79.4 Long term (current) use of insulin

== ENCOUNTER 2019-11-02 08:30 | Emergency (ER) | payer MEDICAID ==
[~2019-11-02] VITALS: Ht 172.7 cm; Wt 102.1 kg
[2019-11-02 08:58] LABS: BASO % 0.2 % (0.0-1.0); EOS # 0.2 10*3/uL (0.0-0.4); EOS % 1.6 % (1.0-4.0); HEMATOCRIT 32.5 % (37.0-47.0); LYMPH # 1.1 10*3/uL (1.3-4.4); LYMPH % 10.6 % (27.0-41.0); MEAN CELL VOLUME 76.3 fl (81.0-99.0); MEAN CORPUSCULAR HGB 21.8 pg (27.0-31.0); MEAN CORPUSCULAR HGB CONC 28.6 g/dl (33.0-37.0); MEAN PLATELET VOLUME 9.3 fl (9.6-12.3); MONO # 0.6 10*3/uL (0.1-1.0); MONO % 5.5 % (3.0-9.0); NEUT # 8.4 10*3/uL (2.3-7.9); NEUT % 81.8 % (47.0-73.0); PLATELET COUNT AUTOMATED 284 10*3/uL (130-400); RED BLOOD COUNT 4.26 10*6/uL (4.10-5.10); WHITE BLOOD COUNT 10.3 10*3/uL (4.8-10.8)
[2019-11-02 09:10] LABS: ACT PARTIAL THROMBO TIME 27.1 SECONDS (20.0-32.1); INTERNATIONAL NORM RATIO 1.1 (2.0-3.5)
[2019-11-02 09:15] LABS: ALBUMIN 2.7 gm/dl (3.1-4.5); ALKALINE PHOSPHATASE 120 U/L (45-117); BUN 11 mg/dl (7-24); CHLORIDE 102 mmol/L (98-107); CREATININE 0.77 mg/dL (0.55-1.02); POTASSIUM 3.6 mmol/L (3.5-5.1); SGOT/AST 6 IU/L (3-35); SGPT/ALT 12 U/L (12-78); SODIUM 137 mmol/L (136-145); TOTAL PROTEIN 7.3 gm/dL (6.4-8.2)
[2019-11-02 09:17] LABS: TROPONIN I 0.328 ng/ml (<0.045)
[2019-11-02 11:06] VITALS: BP 124/69
== END 2019-11-02 11:12 | disposition short-term general hospital (02) ==
LOC: ED 08:30
PROVIDERS: Emergency Medicine
DX: I21.4 Non-ST elevation (NSTEMI) myocardial infarction (principal); K21.9 Gastro-esophageal reflux disease without esophagitis; I10 Essential (primary) hypertension; E66.9 Obesity, unspecified; E78.00 Pure hypercholesterolemia, unspecified; J45.909 Unspecified asthma, uncomplicated; E11.42 Type 2 diabetes mellitus with diabetic polyneuropathy; M86.9 Osteomyelitis, unspecified; F17.210 Nicotine dependence, cigarettes, uncomplicated; Z79.899 Other long term (current) drug therapy; Z79.4 Long term (current) use of insulin; Z79.82 Long term (current) use of aspirin; Z86.73 Personal history of transient ischemic attack (TIA), and cerebral infarction without residual deficits; Z68.34 Body mass index [BMI] 34.0-34.9, adult

== ENCOUNTER → 2022-03-01 | Outpatient (CLI) | payer OTHER | END | disposition home or self-care (01) | LOC: MAMMO 13:00 | PROVIDERS: ATTEND Family Medicine | DX: N63.21 Unspecified lump in the left breast, upper outer quadrant (principal); N60.02 Solitary cyst of left breast; M51.36 Other intervertebral disc degeneration, lumbar region; M47.816 Spondylosis without myelopathy or radiculopathy, lumbar region; M47.817 Spondylosis without myelopathy or radiculopathy, lumbosacral region ==

== ENCOUNTER → 2022-03-04 | Outpatient (CLI) | payer OTHER | END | disposition home or self-care (01) | LOC: RAD 01:06 | PROVIDERS: ATTEND Family Medicine | DX: Z13.820 Encounter for screening for osteoporosis (principal); M85.852 Other specified disorders of bone density and structure, left thigh; Z78.0 Asymptomatic menopausal state ==

== ENCOUNTER → 2022-08-25 | Outpatient (CLI) | payer OTHER | END | disposition home or self-care (01) | LOC: CARD 14:24 | PROVIDERS: ATTEND Internal Medicine Cardiovascular Disease | DX: I25.9 Chronic ischemic heart disease, unspecified (principal); Z79.899 Other long term (current) drug therapy ==

== ENCOUNTER → 2022-09-14 | Outpatient (CLI) | payer OTHER, MEDICAID | END | disposition home or self-care (01) | LOC: RAD 11:46 | PROVIDERS: ATTEND Family Medicine | DX: M81.0 Age-related osteoporosis without current pathological fracture (principal); Z89.612 Acquired absence of left leg above knee ==

== ENCOUNTER 2023-05-15 14:21 | Emergency (ER) | payer OTHER ==
[~2023-05-15] VITALS: Ht 172.7 cm; Wt 108.9 kg
[2023-05-15 14:31] VITALS: BP 109/58
[2023-05-15 16:33] LABS: BASO % 0.2 % (0.0-1.0); EOS # 0.1 10*3/uL (0.0-0.4); EOS % 0.9 % (1.0-4.0); HEMATOCRIT 40.8 % (37.0-47.0); LYMPH # 1.3 10*3/uL (1.3-4.4); LYMPH % 14.9 % (27.0-41.0); MEAN CELL VOLUME 91.1 fl (81.0-99.0); MEAN CORPUSCULAR HGB 27.7 pg (27.0-31.0); MEAN CORPUSCULAR HGB CONC 30.4 g/dl (33.0-37.0); MEAN PLATELET VOLUME 11.5 fl (9.6-12.3); MONO # 0.6 10*3/uL (0.1-1.0); NEUT # 6.6 10*3/uL (2.3-7.9); NEUT % 76.5 % (47.0-73.0); PLATELET COUNT AUTOMATED 237 10*3/uL (130-400); RED BLOOD COUNT 4.48 10*6/uL (4.10-5.10); RED CELL DISTRI WIDTH 14.9 % (0-14.5); WHITE BLOOD COUNT 8.6 10*3/uL (4.8-10.8)
[2023-05-15 16:44] LABS: ACT PARTIAL THROMBO TIME 32.9 SECONDS (20.0-32.1)
[2023-05-15 16:55] LABS: ALKALINE PHOSPHATASE 168 U/L (46-116); BUN 7 mg/dl (9-23); CHLORIDE 100 mmol/L (98-107); LIPASE 24 U/L (12-53); POTASSIUM 3.8 mmol/L (3.4-5.1); SGPT/ALT 12 U/L (5-49); TOTAL PROTEIN 7.1 gm/dL (6.0-8.0)
[2023-05-15] MEDS ORDERED: INSULIN REGULAR, HUMAN 1 UNIT/0.01 ML IV ONE (17:25)
[2023-05-15] MEDS ORDERED: ACETAMINOPHEN 325 MG TAB PO ONE (17:40)
== END 2023-05-15 18:24 | disposition home or self-care (01) ==
LOC: ED 14:21
PROVIDERS: Internal Medicine
DX: E11.65 Type 2 diabetes mellitus with hyperglycemia (principal); M79.671 Pain in right foot; E11.40 Type 2 diabetes mellitus with diabetic neuropathy, unspecified; E78.00 Pure hypercholesterolemia, unspecified; J45.909 Unspecified asthma, uncomplicated; F17.210 Nicotine dependence, cigarettes, uncomplicated; Z90.49 Acquired absence of other specified parts of digestive tract; Z98.51 Tubal ligation status; Z98.890 Other specified postprocedural states; Z86.718 Personal history of other venous thrombosis and embolism

== ENCOUNTER → 2023-10-18 | Outpatient (CLI) | payer OTHER ==
[~2023-10-18] MED LIST changes: +ALBUTEROL SULFATE HF INH; +ATORVASTATIN CA80 M1 PO; +BUPROPION HYDR200 M2 PO; +CILOSTAZOL100 MG PO; +DOXYCYCLINE HY100 M3 PO; +FUROSEMIDE20 M1 PO; +IBU800 M1 PO; +JARDIANCE25 MG PO; +LEVOCETIRIZINE D5 M1 PO; +METOPROLOL SUCC25 M2 PO; +MONTELUKAST SOD10 MG PO; +OXYCODONE-ACET1 EAC3 PO; +OZEMPIC2 MG/0.71 SQ; +PLAVIX75 M1 PO
== END | disposition home or self-care (01) ==
LOC: US 13:45
PROVIDERS: ATTEND Podiatrist Foot & Ankle Surgery
DX: R60.0 Localized edema (principal)

== ENCOUNTER → 2024-01-25 | Outpatient (CLI) | payer OTHER ==
[2024-01-25 11:48] LABS: BASO % 0.3 % (0.0-1.0); EOS # 0.1 10*3/uL (0.0-0.4); HEMATOCRIT 36.7 % (37.0-47.0); LYMPH # 1.2 10*3/uL (1.3-4.4); LYMPH % 17.9 % (27.0-41.0); MEAN CELL VOLUME 88.2 fl (81.0-99.0); MEAN CORPUSCULAR HGB 27.9 pg (27.0-31.0); MEAN CORPUSCULAR HGB CONC 31.6 g/dl (33.0-37.0); MEAN PLATELET VOLUME 10.4 fl (9.6-12.3); MONO # 0.5 10*3/uL (0.1-1.0); MONO % 6.8 % (3.0-9.0); NEUT # 5.1 10*3/uL (2.3-7.9); NEUT % 72.7 % (47.0-73.0); PLATELET COUNT AUTOMATED 279 10*3/uL (130-400); RED BLOOD COUNT 4.16 10*6/uL (4.10-5.10); RED CELL DISTRI WIDTH 14.9 % (0-14.5); WHITE BLOOD COUNT 6.9 10*3/uL (4.8-10.8)
[2024-01-25 12:14] LABS: ALKALINE PHOSPHATASE 172 U/L (46-116); BUN 10 mg/dl (9-23); CHLORIDE 103 mmol/L (98-107); CHOLESTEROL 198 mg/dL (<200); LDL CHOLESTEROL 127 mg/dL (9-159); POTASSIUM 4.3 mmol/L (3.4-5.1); SGPT/ALT 10 U/L (5-49); TOTAL PROTEIN 6.6 gm/dL (6.0-8.0); TRIGLYCERIDES 218 mg/dl (<150)
== END | disposition home or self-care (01) ==
LOC: LAB 11:25
PROVIDERS: ATTEND Nurse Practitioner Family
DX: Z13.29 Encounter for screening for other suspected endocrine disorder (principal); E11.65 Type 2 diabetes mellitus with hyperglycemia; I25.10 Atherosclerotic heart disease of native coronary artery without angina pectoris; Z76.89 Persons encountering health services in other specified circumstances

== ENCOUNTER 2024-06-05 17:29 | Observation (INO) | payer OTHER ==
[~2024-06-05] VITALS: Wt 80.7 kg
[~2024-06-05 17:29] MED LIST changes: +Coumadin5 MG PO
[2024-06-05 17:30] VITALS: BP 148/112
[2024-06-05] MEDS ORDERED: MORPHINE Sulfate 2 MG/ML SYR IV ONE (18:05)
[2024-06-05] MEDS ORDERED: Ondansetron Hydrochloride 4 MG/2 ML VIAL IV ONE (18:10)
[2024-06-05] MEDS ORDERED: ceFAZolin sodium/sodium chlor 20 ML IV ONE (18:15)
[2024-06-05 18:19] LABS: BASO % 0.3 % (0.0-1.0); EOS # 0.1 10*3/uL (0.0-0.4); EOS % 1.7 % (1.0-4.0); HEMATOCRIT 33.6 % (37.0-47.0); MEAN CORPUSCULAR HGB 25.1 pg (27.0-31.0); MEAN CORPUSCULAR HGB CONC 28.6 g/dl (33.0-37.0); MEAN PLATELET VOLUME 9.6 fl (9.6-12.3); MONO # 0.4 10*3/uL (0.1-1.0); MONO % 7.2 % (3.0-9.0); NEUT # 4.4 10*3/uL (2.3-7.9); NEUT % 77.2 % (47.0-73.0); PLATELET COUNT AUTOMATED 291 10*3/uL (130-400); RED BLOOD COUNT 3.82 10*6/uL (4.10-5.10); RED CELL DISTRI WIDTH 21.3 % (0-14.5); WHITE BLOOD COUNT 5.7 10*3/uL (4.8-10.8)
[2024-06-05] MEDS ORDERED: OZEMPIC2 MG/0.71 SC (18:35)
[2024-06-05] MEDS ORDERED: VITAMIN D350 MCG PO (18:38)
[2024-06-05] MEDS ORDERED: NYSTATIN15 GM T (18:39)
[2024-06-05 18:40] LABS: ALKALINE PHOSPHATASE 148 U/L (46-116); BUN 5 mg/dl (9-23); CHLORIDE 104 mmol/L (98-107); POTASSIUM 3.1 mmol/L (3.4-5.1); TOTAL PROTEIN 6.1 gm/dL (6.0-8.0)
[2024-06-05] MEDS ORDERED: NOVOLOG FL100 UNIT/2 SC (18:42)
[2024-06-05 18:44] LABS: SGPT/ALT < 7 U/L (5-49)
[2024-06-05] MEDS ORDERED: Lovenox60 MG/0.6 SC (18:45)
[2024-06-05] MEDS ORDERED: CITALOPRAM20 MG PO (18:47)
[2024-06-05] MEDS ORDERED: OXYCODONE HCL5 MG PO (18:49)
[2024-06-05] MEDS ORDERED: INSULIN GL100 UNIT/2 SC (18:51)
[2024-06-05] MEDS ORDERED: CEFEPIME2 GM/100 M IV (18:54)
[2024-06-05] MEDS ORDERED: METHOCARBAMOL750 M1 PO (18:55)
[2024-06-05] MEDS ORDERED: VITAMIN B12500 MC2 PO (18:57)
[2024-06-05] MEDS ORDERED: SANTYL30 GM T (19:04)
[2024-06-05] MEDS ORDERED: DAKIN'S473 M1 MC (19:05)
[2024-06-05] MEDS ORDERED: HYDROXYZINE10 MG PO (19:06)
[2024-06-05] MEDS ORDERED: [UNRECOGNIZED DRUG - OTHER] PO (19:08)
[2024-06-05] MEDS ORDERED: HYDROmorphone Hydrochloride 1 MG/ML SYR IV ONE ×2 (19:50→23:00)
[2024-06-06 01:17] VITALS: BP 103/54
[2024-06-06] MEDS ORDERED: HYDROmorphone Hydrochloride 1 MG/ML SYR IV ONE ×2 (05:25→08:05)
[2024-06-06 05:48] VITALS: BP 93/61
[2024-06-06] MEDS ORDERED: ceFAZolin sodium 1 GM in SYRINGE INFUSION 10 ML IV ONE (07:00)
[2024-06-06 08:00] VITALS: BP 119/50
[2024-06-06] MEDS ORDERED: HYDROmorphone Hydrochloride 1 MG/ML SYR IV PRN (08:35)
[2024-06-06] MEDS ORDERED: Acetaminophen/Hydrocodone 5 MG/325 MG TABLET PO PRN (08:35)
[2024-06-06] MEDS ORDERED: POTASSIUM CHLORIDE 20 MEQ TAB PO ONE (08:45)
[2024-06-06 09:05] LABS: ACT PARTIAL THROMBO TIME 33.6 SECONDS (20.0-32.1)
[2024-06-06] MEDS ORDERED: hydrOXYzine hydrochloride 10 MG TAB PO PRN (11:10)
[2024-06-06] MEDS ORDERED: Loperamide Hydrochloride 2 MG CAP PO SCH (12:00)
[2024-06-06 14:00] VITALS: BP 105/52
[2024-06-06] MEDS ORDERED: CEFEPIME HCL IN DEXTROSE 5 % 50 ML IV SCH (14:00)
[2024-06-06] MEDS ORDERED: buPROPion SR 100 MG TAB PO SCH (22:00)
[2024-06-06] MEDS ORDERED: NYSTATIN 15 GM BOT T SCH (22:00)
[2024-06-06] MEDS ORDERED: ATORVASTATIN CALCIUM 40 MG TABLET PO SCH (22:00)
[2024-06-06] MEDS ORDERED: METOPROLOL SUCCINATE XR 25 MG TAB PO SCH (22:00)
[2024-06-06] MEDS ORDERED: CILOSTAZOL 100 MG TAB PO SCH (22:00)
[2024-06-06] MEDS ORDERED: Sodium Hypochlorite 0.5% (DAKIN'S) 480 ML SOL T SCH (22:00)
[2024-06-06] MEDS ORDERED: Enoxaparin Sodium 80 MG/0.8 ML SYR SC SCH (22:00)
[2024-06-06] MEDS ORDERED: Montelukast Sodium 10 MG TAB PO SCH (22:00)
[2024-06-06] MEDS ORDERED: Insulin Glargine, Recombinan 1 UNIT/0.01 ML SC SCH (22:00)
[2024-06-07] MEDS ORDERED: ASPIRIN, CHEWABLE 81 MG TAB PO SCH (10:00)
[2024-06-07] MEDS ORDERED: CITALOPRAM 20 MG TAB PO SCH (10:00)
== END 2024-06-06 19:41 | disposition short-term general hospital (02) ==
LOC: ED 17:29 → EDHOLD 06-06 07:47
PROVIDERS: Emergency Medicine; ADMIT Internal Medicine; ATTEND Internal Medicine
DX: T81.30XA Disruption of wound, unspecified, initial encounter (principal); L03.90 Cellulitis, unspecified; T14.8XXA Other injury of unspecified body region, initial encounter; D50.9 Iron deficiency anemia, unspecified; E11.65 Type 2 diabetes mellitus with hyperglycemia; E87.6 Hypokalemia; I99.8 Other disorder of circulatory system; I73.9 Peripheral vascular disease, unspecified; I10 Essential (primary) hypertension; M81.0 Age-related osteoporosis without current pathological fracture; Z86.73 Personal history of transient ischemic attack (TIA), and cerebral infarction without residual deficits; Z90.49 Acquired absence of other specified parts of digestive tract; Z79.4 Long term (current) use of insulin; Z79.899 Other long term (current) drug therapy

== ENCOUNTER 2024-06-19 01:30 | Emergency (ER) | payer OTHER ==
[~2024-06-19] VITALS: Wt 77.1 kg
[~2024-06-19 01:30] MED LIST changes: +CEFEPIME2 GM/100 M IV; +CITALOPRAM20 MG PO; +DAKIN'S473 M1 MC; +HYDROXYZINE10 MG PO; +INSULIN GL100 UNIT/2 SC; +Lovenox60 MG/0.6 SC; +METHOCARBAMOL750 M1 PO; +NOVOLOG FL100 UNIT/2 SC; +NYSTATIN15 GM T; +OXYCODONE HCL5 MG PO; +OZEMPIC2 MG/0.71 SC; +SANTYL30 GM T; +VITAMIN B12500 MC2 PO; +VITAMIN D350 MCG PO; +[UNRECOGNIZED DRUG - OTHER] PO
[2024-06-19] MEDS ORDERED: fentaNYL CITRATE 100 MCG/2 ML VIAL IV ONE (02:25)
[2024-06-19 02:36] LABS: BASO % 0.5 % (0.0-1.0); EOS # 0.2 10*3/uL (0.0-0.4); EOS % 3.9 % (1.0-4.0); MEAN CORPUSCULAR HGB 25.1 pg (27.0-31.0); MEAN CORPUSCULAR HGB CONC 28.5 g/dl (33.0-37.0); MEAN PLATELET VOLUME 9.1 fl (9.6-12.3); MONO # 0.5 10*3/uL (0.1-1.0); MONO % 8.7 % (3.0-9.0); NEUT # 3.8 10*3/uL (2.3-7.9); NEUT % 61.4 % (47.0-73.0); PLATELET COUNT AUTOMATED 459 10*3/uL (130-400); RED BLOOD COUNT 3.75 10*6/uL (4.10-5.10); RED CELL DISTRI WIDTH 19.2 % (0-14.5); WHITE BLOOD COUNT 6.1 10*3/uL (4.8-10.8)
[2024-06-19 03:00] LABS: BUN 10 mg/dl (9-23); CHLORIDE 98 mmol/L (98-107); POTASSIUM 4.1 mmol/L (3.4-5.1)
[2024-06-19] MEDS ORDERED: fentaNYL CITRATE/PF 50 MCG/ML SYRINGE IM ONE (03:25)
[2024-06-19] MEDS ORDERED: SODIUM CHLORIDE 0.9% 1,000 ML IV ONE (04:45)
[2024-06-19] MEDS ORDERED: VENTOLIN 02.5 MG/3 M INH (05:14)
[2024-06-19] MEDS ORDERED: BUSPIRONE10 MG PO (05:15)
[2024-06-19] MEDS ORDERED: HUMALOG100 UNIT/1 SQ (05:21)
[2024-06-19] MEDS ORDERED: HUMALOG100 UNIT/1 SC (05:23)
[2024-06-19] MEDS ORDERED: LANTUS SOL100 UNIT/1 SC (05:24)
[2024-06-19] MEDS ORDERED: KETOROLAC10 MG PO (05:24)
[2024-06-19] MEDS ORDERED: HYDROmorphONE Hydrochloride 0.5 MG/0.5 ML SYRINGE IV ONE (05:25)
[2024-06-19] MEDS ORDERED: MELATONIN3 MG PO (05:26)
[2024-06-19] MEDS ORDERED: MAGNESIUM OXID400 MG PO (05:26)
[2024-06-19 06:38] VITALS: BP 95/47
== END 2024-06-19 08:19 ==
LOC: ED 01:30
PROVIDERS: Emergency Medicine
DX: M79.604 Pain in right leg (principal); I11.0 Hypertensive heart disease with heart failure; I50.9 Heart failure, unspecified; E11.9 Type 2 diabetes mellitus without complications; J45.909 Unspecified asthma, uncomplicated; E78.00 Pure hypercholesterolemia, unspecified; F31.9 Bipolar disorder, unspecified; Z79.4 Long term (current) use of insulin; Z79.82 Long term (current) use of aspirin; Z79.899 Other long term (current) drug therapy; Z90.49 Acquired absence of other specified parts of digestive tract; Z98.51 Tubal ligation status; Z98.890 Other specified postprocedural states

== ENCOUNTER 2024-07-12 14:05 | Observation (INO) | payer OTHER ==
[2024-07-12] VITALS (16 sets, daily range): BP systolic 77–148; BP diastolic 35–112
[~2024-07-12 14:05] MED LIST changes: +BUSPIRONE10 MG PO; +HUMALOG100 UNIT/1 SC; +HUMALOG100 UNIT/1 SQ; +KETOROLAC10 MG PO; +LANTUS SOL100 UNIT/1 SC; +MAGNESIUM OXID400 MG PO; +MELATONIN3 MG PO; +VENTOLIN 02.5 MG/3 M INH
[2024-07-12] MEDS ORDERED: Ondansetron Hydrochloride 4 MG/2 ML VIAL IV ONE (14:15)
[2024-07-12] MEDS ORDERED: MORPHINE Sulfate 2 MG/ML SYR IV ONE (14:15)
[2024-07-12] MEDS ORDERED: SODIUM CHLORIDE 0.9% 1,000 ML IV ONE ×4 (14:15→18:55)
[2024-07-12] MEDS ORDERED: Vancomycin Hydrochloride 250 ML IV ONE (14:40)
[2024-07-12] MEDS ORDERED: Piperacillin Sodium/Tazobact 50 ML IV ONE (14:40)
[2024-07-12 14:45] LABS: BASO % 0.3 % (0.0-1.0); EOS # 0.1 10*3/uL (0.0-0.4); EOS % 1.1 % (1.0-4.0); HEMATOCRIT 29.2 % (37.0-47.0); MEAN CELL VOLUME 83.9 fl (81.0-99.0); MEAN CORPUSCULAR HGB 24.7 pg (27.0-31.0); MEAN CORPUSCULAR HGB CONC 29.5 g/dl (33.0-37.0); MONO # 1.2 10*3/uL (0.1-1.0); MONO % 11.2 % (3.0-9.0); NEUT # 8.2 10*3/uL (2.3-7.9); NEUT % 78.2 % (47.0-73.0); PLATELET COUNT AUTOMATED 492 10*3/uL (130-400); RED BLOOD COUNT 3.48 10*6/uL (4.10-5.10); RED CELL DISTRI WIDTH 18.1 % (0-14.5); WHITE BLOOD COUNT 10.5 10*3/uL (4.8-10.8)
[2024-07-12 15:08] LABS: BUN 9 mg/dl (9-23); CHLORIDE 98 mmol/L (98-107); POTASSIUM 3.7 mmol/L (3.4-5.1)
[2024-07-12 15:14] LABS: ACT PARTIAL THROMBO TIME 66.6 SECONDS (20.0-32.1)
[2024-07-12] MEDS ORDERED: NYSTATIN 15 GM BOT T ONE (15:46)
[2024-07-12] MEDS ORDERED: Sodium Hypochlorite 0.125% (1/4 STRENGTH DAKIN'S) 480 ML SOL T ONE (15:50)
[2024-07-12] MEDS ORDERED: NOREPINEPHRINE BITARTRATE/D5W 250 ML IV SCH (16:30)
[2024-07-12] MEDS ORDERED: MORPHINE Sulfate 2 MG/ML SYR IV PRN (16:35)
[2024-07-12] MEDS ORDERED: Ondansetron Hydrochloride 4 MG/2 ML VIAL IV PRN (16:35)
[2024-07-12] MEDS ORDERED: Acetaminophen/Hydrocodone 5 MG/325 MG TABLET PO PRN (16:35)
[2024-07-12] MEDS ORDERED: CYMBALTA60 MG PO (17:32)
[2024-07-12] MEDS ORDERED: OXYCODONE HCL10 M1 PO (17:42)
[2024-07-12] MEDS ORDERED: PERCOCET 10-321 EACH PO (17:43)
[2024-07-12] MEDS ORDERED: MIRALAX POWDER17 G1 PO (17:44)
[2024-07-12] MEDS ORDERED: HYDROmorphONE Hydrochloride 0.5 MG/0.5 ML SYRINGE IV ONE (17:50)
[2024-07-12] MEDS ORDERED: Clindamycin Phosphate 50 ML IV SCH (18:00)
[2024-07-12] MEDS ORDERED: VISTARIL25 MG PO ×2 (18:27→18:28)
[2024-07-12] MEDS ORDERED: HYDROmorphone Hydrochloride 1 MG/ML SYR IV ONE (19:00)
[2024-07-12] MEDS ORDERED: Lidocaine Hydrochloride 5 ML AMP ONE (19:21)
[2024-07-12] MEDS ORDERED: fentaNYL CITRATE 100 MCG/2 ML VIAL IV ONE (19:30)
[2024-07-12] MEDS ORDERED: Piperacillin Sodium/Tazobact 50 ML IV SCH (21:00)
[2024-07-13] MEDS ORDERED: VANCOMYCIN/WATER FOR INJ (PEG) 150 ML IV SCH (06:00)
== END 2024-07-12 22:39 | disposition short-term general hospital (02) ==
LOC: ED 14:05 → EDHOLD 16:13 → 4E 17:19 → EDHOLD 18:18
PROVIDERS: Emergency Medicine; ADMIT Family Medicine; ATTEND Family Medicine
DX: L03.311 Cellulitis of abdominal wall (principal); T87.40 Infection of amputation stump, unspecified extremity; I95.9 Hypotension, unspecified; Z79.899 Other long term (current) drug therapy; Z79.82 Long term (current) use of aspirin; Z79.01 Long term (current) use of anticoagulants; Z79.4 Long term (current) use of insulin; Y83.8 Other surgical procedures as the cause of abnormal reaction of the patient, or of later complication, without mention of misadventure at the time of the procedure

== ENCOUNTER 2024-07-28 04:44 | Emergency (ER) | payer OTHER ==
[~2024-07-28 04:44] MED LIST changes: +CYMBALTA60 MG PO; +MIRALAX POWDER17 G1 PO; +OXYCODONE HCL10 M1 PO; +PERCOCET 10-321 EACH PO; +VISTARIL25 MG PO
[2024-07-28] MEDS ORDERED: HYDROmorphone Hydrochloride 1 MG/ML SYR IM ONE (06:40)
[2024-07-30] MEDS ORDERED: VANC1PIG IV (05:21)
[2024-07-30] MEDS ORDERED: PROTONIX40 MG PO (05:21)
[2024-07-30] MEDS ORDERED: MILK OF MA2400 MG/11 PO (05:23)
[2024-07-30] MEDS ORDERED: BISACODYL10 MG R (05:26)
[2024-07-30] MEDS ORDERED: ENEMA READY-TO133 ML R (05:32)
[2024-07-30] MEDS ORDERED: ERTAPENEM1 GM IV (05:33)
[2024-07-30] MEDS ORDERED: WELLBUTRIN SR200 MG PO (16:37)
[2024-07-30] MEDS ORDERED: CYMBALTA30 MG PO (16:37)
[2024-07-30] MEDS ORDERED: TOPROL XL25 MG PO (16:38)
== END 2024-07-28 08:00 ==
LOC: ED 04:44
DX: R07.81 Pleurodynia (principal); F17.200 Nicotine dependence, unspecified, uncomplicated; Z88.0 Allergy status to penicillin; Z79.899 Other long term (current) drug therapy; Z79.82 Long term (current) use of aspirin; Z79.4 Long term (current) use of insulin; Z95.5 Presence of coronary angioplasty implant and graft; Z98.890 Other specified postprocedural states; Z90.49 Acquired absence of other specified parts of digestive tract; Z96.653 Presence of artificial knee joint, bilateral; W06.XXXA Fall from bed, initial encounter; Y93.89 Activity, other specified; Y92.128 Other place in nursing home as the place of occurrence of the external cause; Y99.8 Other external cause status